=== PATIENT | female | born 1945 | race Caucasian/White ===

== ENCOUNTER 2017-03-28 15:51 | Outpatient (CLI) | payer OTHER ==
[~2017-03-28] VITALS: Ht 148.6 cm; Wt 56.4 kg
[2017-03-28 16:08] VITALS: BP 178/79; PULSE 95; RESP 16; Ht 148.6 cm; Wt 56.4 kg
[2017-03-28] MEDS ORDERED: ATOR80TA75 PO (16:08)
[2017-03-28] MEDS ORDERED: FAMO20TA18 PO (16:08)
[2017-03-28] MEDS ORDERED: ONDA4TAB95 PO (16:08)
[2017-03-28] MEDS ORDERED: LEVO75TA5 PO (16:08)
[2017-03-28] MEDS ORDERED: HYD25 PO (16:08)
[2017-03-28] MEDS ORDERED: PANT40TA4 PO (16:08)
--- NOTE | 2017-03-28 16:16 | PN ---
Date/Time of Note Date/Time of Note DATE: 03/28/17 TIME: 16:12 Outpatient Progress Note Chief Complaint Abdominal pain/hypertension/liver failure/anemia HPI Abdominal pain/patient has abdominal pain, mostly in the right upper quadrant, no fever chill, patient was recently hospitalized, patient had acute cholecystitis, patient also has a gallstone, patient still has antibiotic, no fever chill, Hypertension/patient has slightly elevated blood pressure, patient is in moderate pain, patient was just taking Motrin, no nausea or vomiting, Liver failure/no confusion, no nausea vomiting, Anemia/no hematemesis or melena, no ecchymoses or bruises or bleeding, Review of Systems Const: No Fever, no chills, no Wt. loss, no Fatigue, normal appetite, no diaphoresis. Eyes: No pain, no discharge, no redness, no visual change, no foreign body. ENT: No pain, no bleeding, no congestion, no sore throat, no dysphagia, no discharge or rhinitis. Lymph: No adenopathy, no tender nodes, no lymphedema. Resp: No SOB, no cough, no sputum, no wheezing, no chest pain. CV: No chest pain, no palpitaions, no HAGAN, no PND, no edema. GI: Normal appetite, right upper quadrant pain, no nausea, no vomiting, no diarrhea, no blood, no constipation. : No frequency, no urgency, no dysuria, no hematuria, no flank pain, no discharge, no bleeding. Musc: No bone/joint pain, no back pain, no neck pain, no knee pain, no restricted ROM. Skin: No rash, no skin lesions, no erythema, no laceration, no bruising, no pruritus. Neuro: No CHAVES, no dizziness, no syncope, no seizure, no focal-weakness. Endo: No polyuria, no polydypsia, no dry-skin, no temp-intolerance. Psych: No hallucinations, no depression, no anxiety, no suicidal ideation. Ext: No edema, no pain, no ulcer, no weakness. Physical Exam Vital Signs Date Time Temp Pulse Resp B/P Pulse Ox O2 Delivery O2 Flow Rate FiO2 03/28/17 16:08 97.8 95 16 178/79 95 Room Air General Appearance: A 71 year-old female who appears well-developed, well- nourished, in no acute distress. HEENT: Head normocephalic, atraumatic. Pupils equal, round, reactive to light and accommodate. Sclerae are no jaundice. Nasal turbinates pink without erythema or nasal discharge. Mucous membranes pink and moist without lesions. Oropharynx clear without any exudate or discharge. NECK: Supple. Trachea midline, No thyromegaly, No cervical lymphadenopathy, No mass, No carotid bruits, No JVD, Carotid pulses 2+ bilaterally. PULMONARY: Clear to auscultaion bilaterally, No retractions, Chest expansion symmetric bilaterally, no rales, no ronchi, no dulness on percussion. CARDIAC: Normal SI and S2, Regular rate and rythm, no murmur, gallop, or rub. GASTROINTESTINAL: Abdomen is soft, right upper quadrant-tender, Non Rigid, No distention, Positive bowel sounds x4 quadrants, Liver normal. SKIN: Warm, dry, no rash, no bruise, no echmosis., No pruritus, no eczema, EXTREMITIES: Bilateral lower extremities normal, no edema, no phlabitus, pulse palpable, no contracture. MUSCULOSKELETAL: Spine Normal, Non-tender, Normal range of motion, No swelling, no deformity, no clubbing, or cyanosis, the patient has no edema to bilateral lower extremities, dorsalis pedis pulses palpable bilaterally. NEUROLOGIC: The patient is awake, alert, oriented, responding to yes/no questions appropriately, moving all extremities, cranial nerve intact, normal strenght, normal power, normal coordination, normal gait. Allergies Coded Allergies: No Known Drug Allergies (Verified Allergy, Unknown, 03/28/17) PMH Gallstones/acute pancreatitis/cholelithiasis cholecystitis hypertension liver failure anemia Social Hx No smoking no drinking, Family Hx Noncontributory Assessment/Plan Impression Abdominal pain secondary to cholelithiasis and cholecystitis, Hypertension p poorly controlled Liver failure Anemia Plan Patient education done about her disease, patient still has lot of abdominal pain, 6 or 7 out of 10, patient was just taking Motrin, [address] 5/325 p.o. 4 times daily as needed for pain #50 CBC CMP, Patient advised to follow with the primary care physician, and continue all medication, Patient blood pressure slightly elevated, patient has a lot of pain so will monitor, with the blood pressure medication will be added if next visit blood pressure is elevated, Patient is still working, patient was unable to work, will give her relief, Medications Home Meds Reported Medications Hydrochlorothiazide* (Hydrochlorothiazide*) 25 Mg Tab, 25 MG PO DAILY, #30 TAB 03/28/17 Levothyroxine Sodium* (Levothyroxine Sodium*) 75 Mcg Tablet, 75 MCG PO BEFORE BREAKFAST, #30 TAB 03/28/17 Famotidine* (Famotidine*) 20 Mg Tablet, 20 MG PO DAILY for acid, #30 TAB 03/28/17 Ondansetron Hcl* (Ondansetron Hcl*) 4 Mg Tablet, 4 MG PO Q8 for NAUSEA, TAB 03/28/17 Pantoprazole* (Pantoprazole*) 40 Mg Tablet.dr, 40 MG PO AC BREAKFAST, TAB 03/28/17 Atorvastatin* (Atorvastatin*) 80 Mg Tablet, 80 MG PO QHS, #30 TAB 03/28/17 SOLITARIO TORRES MD Mar 28, 2017 16:16
== END 2017-03-28 16:45 | disposition home or self-care (01) ==
LOC: DCC 15:51
PROVIDERS: ATTEND Internal Medicine
DX: K80.10 Calculus of gallbladder with chronic cholecystitis without obstruction (principal); I10 Essential (primary) hypertension; K72.90 Hepatic failure, unspecified without coma; D64.9 Anemia, unspecified

== ENCOUNTER 2017-06-26 19:49 | Inpatient (IN) | payer OTHER ==
[~2017-06-26] VITALS: Ht 162.6 cm; Wt 57.5 kg
[~2017-06-26 19:49] MED LIST: ATOR80TA75 PO; FAMO20TA18 PO; HYD25 PO; LEVO75TA5 PO; ONDA4TAB95 PO; PANT40TA4 PO
[2017-06-26 19:55] VITALS: Ht 162.6 cm; Wt 57.5 kg
[2017-06-26] MEDS ORDERED: SOD CHLORIDE 0.9% 1,000 ML IV STA (21:28)
[2017-06-26] MEDS ORDERED: ONDANSETRON 4 MG INJ IV STA ×2 (21:28→23:10)
[2017-06-26] MEDS ORDERED: morphine 4 MG/ML VIAL IV STA ×2 (21:28→23:10)
--- NOTE | 2017-06-26 21:56 | RADRPT ---
PROCEDURE: US Abdomen (right upper quadrant). CLINICAL INDICATION: Right upper quadrant abdomen pain. TECHNIQUE: Multiple real-time longitudinal and transverse images of the right upper quadrant of th e abdomen were acquired utilizing a curved array transducer. Images were reviewed on a high-resoluti on PACS workstation. COMPARISON: None FINDINGS: The liver is normal in size and normal in echogenicity. There is no focal hepatic lesion. Color Doppler and pulsed Doppler sonography demonstrate normal a ntegrade flow in the portal vein. Multiple gallstones are present in the gallbladder. There is no gallbladder wall thickening or flui d around the gallbladder. The bile ducts are normal with the common bile duct measuring 6.5 mm in diameter. The visualized portions of the pancreas are unremarkable with obscuration of the tail of the pancrea s. No free fluid is present. The right kidney measures 10.6 cm. There is normal echogenicity of the right kidney. There is no perinephric fluid collection. No hydronephrosis, mass, or calculus is seen. IMPRESSION: 1. Gallstones in the gallbladder. No evidence of cholecystitis. 2. Otherwise normal right upper quadrant abdomen ultrasound. RPTAT: QQ .Darren Myrick MD, MD Date Time Electronically viewed and signed by .Darren Myrick MD, on 06/26/2017 21:56 .R/
[2017-06-26] MEDS ORDERED: IBUP800T25 PO (22:07)
[2017-06-26] MEDS ORDERED: FER325 PO (22:07)
[2017-06-26 22:12] LABS: BASOPHILS % 0.2 % (0.0-2.0); HEMATOCRIT 34.3 % (37.0-47.0); HEMOGLOBIN 11.8 g/dl (12.0-16.0); LYMPHOCYTES # 1.6 10^3/ul (0.8-2.9); LYMPHOCYTES % 9.1 % (15.0-51.0); MEAN CORPUSCULAR HEMOGLOBIN 30.4 pg (29.0-33.0); MEAN CORPUSCULAR HGB CONC 34.4 g/dl (32.0-37.0); MEAN CORPUSCULAR VOLUME 88.4 fl (82.0-101.0); MEAN PLATELET VOLUME 10.7 fl (7.4-10.4); MONOCYTE # 0.7 10^3/ul (0.3-0.9); MONOCYTES % 3.7 % (0.0-11.0); NEUTROPHILS % 86.5 % (39.0-77.0); PLATELET COUNT 285 10^3/UL (140-415); RED BLOOD COUNT 3.88 10^6/ul (4.20-5.40); RED CELL DISTRIBUTION WIDTH 13.6 % (11.5-14.5); WHITE BLOOD COUNT 17.4 10^3/ul (4.8-10.8)
--- NOTE | 2017-06-26 22:17 | ERA ---
ER Documentation Chief Complaint Date/Time DATE: 06/26/17 TIME: 22:17 Chief Complaint RUQ abd pain x 2 days HPI The patient is a 71-year-old female, presenting with presenting with abdominal pain intermittently for 2 days, more painful and at the epigastric and upper quadrant, no aggravating or relieving factor. She had similar symptoms previously, complains of nausea but no vomiting, denies diarrhea, constipation, dysuria. she does not smoke/drink Past medical history: Anemia, hypothyroidism, dyslipidemia, cholelithiasis Past surgical history: None ROS All systems reviewed and are negative except as per history of present illness. Medications Home Meds Reported Medications Ferrous Sulfate* (Ferrous Sulfate*) 325 Mg Tabec, 325 MG PO DAILY, TAB 06/26/17 Ibuprofen* (Ibuprofen*) 800 Mg Tab, 800 MG PO TID Y for PRN, TAB 06/26/17 Levothyroxine Sodium* (Levothyroxine Sodium*) 75 Mcg Tablet, 75 MCG PO BEFORE BREAKFAST, #30 TAB 03/28/17 Famotidine* (Famotidine*) 20 Mg Tablet, 20 MG PO DAILY for acid, #30 TAB 03/28/17 Ondansetron Hcl* (Ondansetron Hcl*) 4 Mg Tablet, 4 MG PO Q8 for NAUSEA, TAB 03/28/17 Atorvastatin* (Atorvastatin*) 80 Mg Tablet, 80 MG PO QHS, #30 TAB 03/28/17 Discontinued Reported Medications Hydrochlorothiazide* (Hydrochlorothiazide*) 25 Mg Tab, 25 MG PO DAILY, #30 TAB 03/28/17 Pantoprazole* (Pantoprazole*) 40 Mg Tablet.dr, 40 MG PO AC BREAKFAST, TAB 03/28/17 Allergies Allergies: Coded Allergies: No Known Drug Allergies (Verified Allergy, Unknown, 06/26/17) PMhx/Soc History of Surgery: No Anesthesia Reaction: No Hx Neurological Disorder: No Hx Respiratory Disorders: No Hx Cardiac Disorders: Yes (hyperlipids) Hx Psychiatric Problems: No Hx Miscellaneous Medical Probl: Yes (hypothyroid) Hx Alcohol Use: No Hx Substance Use: No Hx Tobacco Use: No Smoking Status: Never smoker Physical Exam Vitals Vital Signs Date Time Temp Pulse Resp B/P Pulse Ox O2 Delivery O2 Flow Rate FiO2 06/26/17 23:20 99 20 144/63 94 Room Air 06/26/17 19:55 98.3 88 20 133/89 100 Physical Exam Const: No acute distress. Head: Atraumatic. Eyes: Normal Conjunctiva. ENT: Normal External Ears, Nose and Mouth. Neck: Full range of motion. No meningismus. Resp: Clear to auscultation bilaterally. Cardio: Regular rate and rhythm. Abd: Soft, non distended, normal bowel sounds, moderate RUQ/ epigastric abdominal tenderness Skin: No petechiae or rashes. Back: No midline or flank tenderness. Ext: No cyanosis, or edema. Neur: Awake and alert. No focal deficit Psych: Normal Mood and Affect.. Result Diagram: 06/26/17212906/26/172129 Results 24 hrs Laboratory Tests Test 06/26/17 21:30 White Blood Count 17.410^3/ul Red Blood Count 3.8810^6/ul Hemoglobin 11.8g/dl Hematocrit 34.3% Mean Corpuscular Volume 88.4fl Mean Corpuscular Hemoglobin 30.4pg Mean Corpuscular Hemoglobin Concent 34.4g/dl Red Cell Distribution Width 13.6% Platelet Count 59344^3/UL Mean Platelet Volume 10.7fl Neutrophils % 86.5% Lymphocytes % 9.1% Monocytes % 3.7% Eosinophils % 0.0% Basophils % 0.2% Nucleated Red Blood Cells % 0.0/100WBC Neutrophils # (Manual) 15.010^3/ul Lymphocytes # 1.610^3/ul Monocytes # 0.710^3/ul Eosinophils # 0.010^3/ul Basophils # 0.010^3/ul Nucleated Red Blood Cells # 0.010^3/ul Urine Color YELLOW Urine Clarity CLEAR Urine pH 5.0 Urine Specific [place] 1.018 Urine Ketones 1+mg/dL Urine Nitrite NEGATIVEmg/dL Urine Bilirubin NEGATIVEmg/dL Urine Urobilinogen NEGATIVEmg/dL Urine Leukocyte Esterase NEGATIVELeu/ul Urine Hemoglobin NEGATIVEmg/dL Urine Glucose NEGATIVEmg/dL Urine Total Protein NEGATIVEmg/dl Sodium Level 142mmol/L Potassium Level 3.6mmol/L Chloride Level 102mmol/L Carbon Dioxide Level 22mmol/L Anion Gap 22 Blood Urea Nitrogen 15mg/dl Creatinine 0.70mg/dl Glucose Level 134mg/dl Calcium Level 9.8mg/dl Total Bilirubin 0.3mg/dl Direct Bilirubin 0.00mg/dl Indirect Bilirubin 0.3mg/dl Aspartate Amino Transf (AST/SGOT) 33IU/L Alanine Aminotransferase (ALT/SGPT) 34IU/L Alkaline Phosphatase 120IU/L Total Protein 8.4g/dl Albumin 4.5g/dl Globulin 3.90g/dl Albumin/Globulin Ratio 1.15 Lipase 101U/L Current Medications Medications (Trade) Dose Ordered Sig/Alejandra Route PRN Reason Start Time Stop Time Status Last Admin Dose Admin Sodium Chloride (NS) 1,000 ml @ 1,000 mls/hr Q1H STAT IV 06/26/17 21:28 06/26/17 22:27 DC 06/26/17 21:35 Morphine Sulfate (morphine) 4 mg ONCE STAT IV 06/26/17 21:28 06/26/17 21:29 DC 06/26/17 21:34 Ondansetron HCl (Zofran Inj) 4 mg ONCE STAT IV 06/26/17 21:28 06/26/17 21:29 DC 06/26/17 21:34 Morphine Sulfate (morphine) 4 mg ONCE STAT IV 06/26/17 23:10 06/26/17 23:11 DC 06/26/17 23:13 Ondansetron HCl 4 mg 4 mg ONCE STAT IV 06/26/17 23:10 06/26/17 23:11 DC 06/26/17 23:13 Piperacillin Sod/ Tazobactam Sod (Zosyn 3.375gm/ 100 ml (Pmx)) 100 ml @ 200 mls/hr ONCE ONCE IVPB 06/27/17 00:00 06/27/17 00:29 DC 06/27/17 00:10 Metoclopramide HCl (Reglan) 10 mg ONCE ONCE IV 06/27/17 00:30 06/27/17 00:31 DC Procedures/[place] [id number] Radiology Main Line: [phone] DIAGNOSTIC IMAGING REPORT Patient: VALENTE TORRES : 1945 Age: 71 Sex: F MR #: [id number] DOS: 06/26/172127 Ordering MD: SHRUTHI ERICKSON DO Location: E/R Room/Bed: PROCEDURE: US Abdomen (right upper quadrant). CLINICAL INDICATION: Right upper quadrant abdomen pain. TECHNIQUE: Multiple real-time longitudinal and transverse images of the right upper quadrant of the abdomen were acquired utilizing a curved array transducer. Images were reviewed on a high-resolution PACS workstation. COMPARISON: None FINDINGS: The liver is normal in size and normal in echogenicity. There is no focal hepatic lesion. Color Doppler and pulsed Doppler sonography demonstrate normal antegrade flow in the portal vein. Multiple gallstones are present in the gallbladder. There is no gallbladder wall thickening or fluid around the gallbladder. The bile ducts are normal with the common bile duct measuring 6.5 mm in diameter. The visualized portions of the pancreas are unremarkable with obscuration of the tail of the pancreas. No free fluid is present. The right kidney measures 10.6 cm. There is normal echogenicity of the right kidney. There is no perinephric fluid collection. No hydronephrosis, mass, or calculus is seen. IMPRESSION: 1. Gallstones in the gallbladder. No evidence of cholecystitis. 2. Otherwise normal right upper quadrant abdomen ultrasound. RPTAT: QQ .Darren Myrick MD, Date Time Electronically viewed and signed by .Darren Myrick MD, on 06/26/2017 21:56 .R/ CC: SHRUTHI ERICKSON DO MDM: The pt is a 71 yo F, presenting with acute symptomatic biliary colic. She was treated with morphine 4 mg IV 2 for pain, Zofran 4 mg IV 2, Reglan 10 mg IV for nausea, 1 L normal saline for clinical dehydration, Zosyn IV for acute symptomatic biliary colic with good response The differential diagnoses considered include but are not limited to cholelithiasis, cholecystitis, cystitis, pancreatitis, hepatitis, gastritis, peptic ulcer disease, gastric ulcer, appendicitis, diverticulitis, cholangitis, choledocholithiasis, partial small bowel obstruction Consultation: I discussed the patient with the on-call general surgeon Dr. Clayton, who was made aware of the lab, the treatment. He accepted the consult at 11:30 PM Departure Diagnosis: Primary Impression: Biliary colic Additional Impression: Anemia Condition: Stable Additional Instructions: The patient's blood pressure was elevated (>120/80) but appears stable without evidence of hypertension emergency or urgency. The patient was counseled about the risks of hypertension and urged to pursue outpatient monitoring and therapy within a week with their primary care physician. I discussed the findings with the patient. I discussed the patient with the on- call hospitalist Dr. Valencia at 11:40 PM who was made aware of the lab, the treatment, the patient condition and my discussion with the surgeon. The patient is admitted to medical surgery bed NNEKA MARQUEZ MD Jun 26, 2017 22:17
[2017-06-26 22:35] LABS: ALBUMIN 4.5 g/dl (3.3-4.9); ALBUMIN/GLOBULIN RATIO 1.15; BILIRUBIN,INDIRECT 0.3 mg/dl (0-1.1); BILIRUBIN,TOTAL 0.3 mg/dl (0.2-1.3); CALCIUM 9.8 mg/dl (8.4-10.2); CREATININE 0.7 mg/dl (0.44-1.00); POTASSIUM 3.6 mmol/L (3.5-5.1); TOTAL PROTEIN 8.4 g/dl (6.1-8.1)
[2017-06-26 23:25] LABS: ADD UMIC NO; UR ASCORBIC ACID NEGATIVE (NEGATIVE); UR BILIRUBIN (Dip) NEGATIVE (NEGATIVE); UR BLOOD (Dip) NEGATIVE (NEGATIVE); UR CLARITY CLEAR (CLEAR); UR COLOR YELLOW (YELLOW); UR GLUCOSE (Dip) NEGATIVE (NEGATIVE); UR KETONES (Dip) 1+ mg/dL (NEGATIVE); UR LEUKOCYTE ESTERASE (Dip) NEGATIVE Leu/ul (NEGATIVE); UR NITRITE (Dip) NEGATIVE (NEGATIVE); UR SPECIFIC GRAVITY (Dip) 1.018 (1.003-1.030); UR TOTAL PROTEIN (Dip) NEGATIVE (NEGATIVE); UR UROBILINOGEN (Dip) NEGATIVE (NEGATIVE)
[2017-06-27] VITALS (8 sets, daily range): BP systolic 129–142; BP diastolic 59–80; PULSE 93–120; RESP 18–22; TEMP 98.3
[2017-06-27] MEDS ORDERED: PIPER-TAZO 3.375 GM IV (PMX) 100 ML IVPB ONE
[2017-06-27] MEDS ORDERED: METOCLOPRAMIDE 10 MG INJ IV ONE (00:30)
[2017-06-27] MEDS ORDERED: DEXTROSE 5%-0.45% NACL 1,000 ML IV SCH (03:21)
[2017-06-27] MEDS ORDERED: NACL 0.9% 3 ML SYG IV SCH (03:30)
[2017-06-27] MEDS: ONDANSETRON 4 MG INJ IV PRN ×3 (05:05→17:36)
[2017-06-27] MEDS: morphine 4 MG/ML VIAL IV PRN ×2 (05:05→17:36)
[2017-06-27 06:09] LABS: BASOPHILS % 0.1 % (0.0-2.0); HEMOGLOBIN 10.5 g/dl (12.0-16.0); LYMPHOCYTES # 0.9 10^3/ul (0.8-2.9); LYMPHOCYTES % 4.4 % (15.0-51.0); MEAN CORPUSCULAR HEMOGLOBIN 29.8 pg (29.0-33.0); MEAN CORPUSCULAR HGB CONC 33.9 g/dl (32.0-37.0); MEAN CORPUSCULAR VOLUME 88.1 fl (82.0-101.0); MEAN PLATELET VOLUME 10.8 fl (7.4-10.4); MONOCYTE # 1.1 10^3/ul (0.3-0.9); MONOCYTES % 5.6 % (0.0-11.0); NEUTROPHILS % 89.2 % (39.0-77.0); PLATELET COUNT 251 10^3/UL (140-415); RED BLOOD COUNT 3.52 10^6/ul (4.20-5.40); WHITE BLOOD COUNT 20.4 10^3/ul (4.8-10.8)
[2017-06-27] MEDS ORDERED: GLUCOSE GEL 15 GRAM TUBE PO PRN ×2 (06:30)
[2017-06-27] MEDS ORDERED: GLUCAGON 1 MG INJ IM PRN (06:30)
[2017-06-27] MEDS ORDERED: AMPICILLIN/SULB 3 GM/NS (PMX) 100 ML IVPB SCH (06:30)
[2017-06-27] MEDS ORDERED: GLUCOSE GEL 15 GRAM TUBE BUCCAL PRN (06:30)
[2017-06-27] MEDS ORDERED: DEXTROSE 50% 50 ML SYRINGE IV PRN ×2 (06:30)
--- NOTE | 2017-06-27 06:35 | HP ---
Date/Time of Note Date/Time of Note DATE: 06/27/17 TIME: 06:20 Assessment/Plan VTE Prophylaxis VTE Prophylaxis Intervention: SCD's Lines/Catheters Urinary Cath still in place: No Assessment/Plan Assessment/Plan 1. Cholelithiasis with cholecystitis -N.p.o. with IV fluid -IV antibiotic -Pain management -General surgery consult -will order HIDA scan 2. Sepsis, as evidenced by leukocytosis and tachycardia, from a presumed cholecystitis -IV antibiotic -Follow-up culture results -General surgery to evaluate for possible cholecystitis 3. History of hypertension -As needed IV antihypertensive for now 4. Anemia, likely of chronic disease -Monitor H&H and transfuse as needed 5. History of hypothyroidism -Resume Synthroid when no longer n.p.o... If prolonged n.p.o., will start IV Synthroid with appropriate dose adjustment. HPI/ROS Admit Date/Time Admit Date/Time Jun 27, 2017 at 00:36 Hx of Present Illness This is a 71-year-old female with a history of hypertension, dyslipidemia, hypothyroidism, gallstones who presents to the emergency department complaining of abdominal pain. Abdominal pain is diffuse but somehow worse in the right upper quadrant area. Patient was admitted under Dr. Domenic Rock to [facility] in February of this year. At that time she was diagnosed with gallstone pancreatitis and acute liver failure. At that time her lipase was 1400, AST 577 and ALT 853. When she presented to the ER at this time, WBC 17.4, hemoglobin 11.8 otherwise CBC and CMP are within acceptable range. LFTs and lipase are within normal limits. Vitals stable with no fever. Gallbladder ultrasound shows cholelithiasis with no evidence of cholecystitis. CBD measures 6.5 mm. . PMH/Family/Social Past Medical History Medical History: high cholesterol, hypertension, hypothyroid, other (Gallstone pancreatitis) Social History Alcohol Use: none Smoking Status: Never smoker Drug Use: none Exam/Review of Systems Vital Signs Vitals Vital Signs Date Time Temp Pulse Resp B/P Pulse Ox O2 Delivery O2 Flow Rate FiO2 06/27/17 04:00 93 06/27/17 03:10 98.3 18 142/65 97 Room Air Exam Constitutional: alert, oriented, well developed Head: atraumatic, normocephalic Eyes: EOMI, PERRL Respiratory: clear to auscultation, normal air movement Cardiovascular: other (Tachycardic with regular rate) Gastrointestinal: soft, tender Extremities: normal pulses Labs Result Diagram: 06/27/17 0505 06/26/17 3850 Medications Medications Current Medications Dextrose/Sodium Chloride (D5-1/2ns) 1,000 ml @ 100 mls/hr Q10H IV Last administered on 06/27/17 03:21; Admin Dose 100 MLS/HR; Start 06/27/17 at 03:21 Ondansetron HCl (Zofran Inj) 4 mg Q6H PRN IV NAUSEA AND/OR VOMITING Last administered on 06/27/17 05:05; Admin Dose 4 MG; Start 06/27/17 at 03:30 Famotidine (Pepcid Iv) 20 mg Q12 IV ; Start 06/27/17 at 09:00 Hydralazine HCl (Apresoline) 10 mg Q4H PRN IV SBP > 160; Start 06/27/17 at 03:30 Morphine Sulfate (morphine) 4 mg Q4H PRN IV SEVERE PAIN LEVEL 7-10 Last administered on 06/27/17 05:05; Admin Dose 4 MG; Start 06/27/17 at 05:00 Diagnostic Test (Pha) (Accu-Chek) 1 ea 02 XX ; Start 06/28/17 at 02:00 Insulin Glargine (Lantus) 10 unit DAILY@08 SC ; Start 06/27/17 at 08:00 Miscellaneous Information 1 ea NOTE XX ; Start 06/27/17 at 06:30 Glucose (Glutose) 15 gm Q15M PRN PO DECREASED GLUCOSE; Start 06/27/17 at 06:30 Glucose (Glutose) 22.5 gm Q15M PRN PO DECREASED GLUCOSE; Start 06/27/17 at 06:30 Dextrose (D50w Syringe) 25 ml Q15M PRN IV DECREASED GLUCOSE; Start 06/27/17 at 06:30 Dextrose (D50w Syringe) 50 ml Q15M PRN IV DECREASED GLUCOSE; Start 06/27/17 at 06:30 Glucagon (Glucagen) 1 mg Q15M PRN IM DECREASED GLUCOSE; Start 06/27/17 at 06:30 Glucose (Glutose) 15 gm Q15M PRN BUCCAL DECREASED GLUCOSE; Start 06/27/17 at 06: 30 AMDE,ZHENG MD Jun 27, 2017 06:34
[2017-06-27 07:01] LABS: ALBUMIN 3.7 g/dl (3.3-4.9); ALBUMIN/GLOBULIN RATIO 1.12; BILIRUBIN,INDIRECT 0.5 mg/dl (0-1.1); BILIRUBIN,TOTAL 0.5 mg/dl (0.2-1.3); CALCIUM 8.4 mg/dl (8.4-10.2); CREATININE 0.6 mg/dl (0.44-1.00); MAGNESIUM 1.8 mg/dl (1.7-2.5); PHOSPHORUS 3.3 mg/dl (2.5-4.9); POTASSIUM 3.5 mmol/L (3.5-5.1)
[2017-06-27] MEDS: INSULIN ASPART [NOVOLOG] 3 ML PEN SC SCH ×2 (07:35→12:50)
[2017-06-27 08:00] LABS: THYROID STIMULATING HORMONE 1.5 MIU/L (0.465-4.680)
[2017-06-27] MEDS ORDERED: INSULIN GLARGINE [LANtus] 3 ML PEN SC SCH (08:00)
--- NOTE | 2017-06-27 08:22 | CONS ---
Date/Time of Note Date/Time of Note DATE: 06/27/17 TIME: 08:18 Assessment/Plan Assessment/Plan Additional Assessment/Plan Medically this patient has acute cholecystitis and would be benefited by laparoscopic cholecystectomy. Have discussed the procedure, outcomes, expectations, alternatives and risks in detail with the patient who has an excellent understanding of the nature of her situation, and agrees to the proposed plan of therapy as outlined Consultation Date/Type/Reason Admit Date/Time Jun 27, 2017 at 00:36 Date of Consultation: Jun 27, 2017 Reason for Consultation Acute cholecystitis Hx of Present Illness Patient is a 71-year-old female with known gallstones. She has had a past hospitalization at [facility] for gallstone pancreatitis. She now returns to the emergency room with 2 days of epigastric and right upper quadrant abdominal pain. Abdominal ultrasound showed gallstones without evidence of cholecystitis, however her white count which was 17 on admission is up to 20,000. Her LFTs are normal. She has had no fevers, chills or jaundice. Past Medical History Medical History: high cholesterol, hypertension, hypothyroid, other (Gallstone pancreatitis) Past Surgical History Past Surgical Hx: no surgical history Family History Significant Family History: no pertinent family hx Social History Alcohol Use: none Smoking Status: Never smoker Drug Use: none Exam/Review of Systems Vital Signs Vitals Vital Signs Date Time Temp Pulse Resp B/P Pulse Ox O2 Delivery O2 Flow Rate FiO2 06/27/17 04:00 93 06/27/17 03:10 98.3 18 142/65 97 Room Air Exam Constitutional: alert, oriented, other ([place] only [place]) Psych: no complaints Head: normocephalic Eyes: nl conjunctiva, nl lids Neck: supple Respiratory: clear to auscultation Cardiovascular: regular rate and rhythm Gastrointestinal: tender (Right upper quadrant and epigastrium) Musculoskeletal: nl extremities to inspection Neurological: SUPPLY CRIB ATTENDANT II-XII intact Results Result Diagram: 06/27/17 0505 06/27/17 0505 Results 24 hrs Laboratory Tests Test 06/26/17 21:30 06/27/17 05:05 White Blood Count 17.4 H 20.4 H Red Blood Count 3.88 L 3.52 L Hemoglobin 11.8 L 10.5 L Hematocrit 34.3 L 31.0 L Mean Corpuscular Volume 88.4 88.1 Mean Corpuscular Hemoglobin 30.4 29.8 Mean Corpuscular Hemoglobin Concent 34.4 33.9 Red Cell Distribution Width 13.6 14.0 Platelet Count 285 251 Mean Platelet Volume 10.7 H 10.8 H Neutrophils % 86.5 H 89.2 H Lymphocytes % 9.1 L 4.4 L Monocytes % 3.7 5.6 Eosinophils % 0.0 0.0 Basophils % 0.2 0.1 Nucleated Red Blood Cells % 0.0 0.0 Neutrophils # (Manual) 15.0 H 18.2 H Lymphocytes # 1.6 0.9 Monocytes # 0.7 1.1 H Eosinophils # 0.0 0.0 Basophils # 0.0 0.0 Nucleated Red Blood Cells # 0.0 0.0 Urine Color YELLOW Urine Clarity CLEAR Urine pH 5.0 Urine Specific [place] 1.018 Urine Ketones 1+ H Urine Nitrite NEGATIVE Urine Bilirubin NEGATIVE Urine Urobilinogen NEGATIVE Urine Leukocyte Esterase NEGATIVE Urine Hemoglobin NEGATIVE Urine Glucose NEGATIVE Urine Total Protein NEGATIVE Sodium Level 142 138 Potassium Level 3.6 3.5 Chloride Level 102 106 Carbon Dioxide Level 22 23 Anion Gap 22 H 13 # Blood Urea Nitrogen 15 12 Creatinine 0.70 0.60 Glucose Level 134 129 Calcium Level 9.8 8.4 Total Bilirubin 0.3 0.5 Direct Bilirubin 0.00 0.00 Indirect Bilirubin 0.3 0.5 Aspartate Amino Transf (AST/SGOT) 33 62 H Alanine Aminotransferase (ALT/SGPT) 34 56 Alkaline Phosphatase 120 79 Total Protein 8.4 H 7.0 # Albumin 4.5 3.7 Globulin 3.90 H 3.30 H Albumin/Globulin Ratio 1.15 1.12 Lipase 101 Phosphorus Level 3.3 Magnesium Level 1.8 Thyroid Stimulating Hormone (TSH) 1.500 Medications Medications Current Medications Dextrose/Sodium Chloride (D5-1/2ns) 1,000 ml @ 100 mls/hr Q10H IV Last administered on 06/27/17 03:21; Admin Dose 100 MLS/HR; Start 06/27/17 at 03:21 Ondansetron HCl (Zofran Inj) 4 mg Q6H PRN IV NAUSEA AND/OR VOMITING Last administered on 06/27/17 05:05; Admin Dose 4 MG; Start 06/27/17 at 03:30 Famotidine (Pepcid Iv) 20 mg Q12 IV ; Start 06/27/17 at 09:00 Hydralazine HCl (Apresoline) 10 mg Q4H PRN IV SBP > 160; Start 06/27/17 at 03:30 Morphine Sulfate (morphine) 4 mg Q4H PRN IV SEVERE PAIN LEVEL 7-10 Last administered on 06/27/17t 05:05; Admin Dose 4 MG; Start 06/27/17 at 05:00 Diagnostic Test (Pha) (Accu-Chek) 1 ea 02 XX ; Start 06/28/17 at 02:00 Insulin Glargine (Lantus) 10 unit DAILY@08 SC ; Start 06/27/17 at 08:00 Miscellaneous Information 1 ea NOTE XX ; Start 06/27/17 at 06:30 Glucose (Glutose) 15 gm Q15M PRN PO DECREASED GLUCOSE; Start 06/27/17 at 06:30 Glucose (Glutose) 22.5 gm Q15M PRN PO DECREASED GLUCOSE; Start 06/27/17 at 06:30 Dextrose (D50w Syringe) 25 ml Q15M PRN IV DECREASED GLUCOSE; Start 06/27/17 at 06:30 Dextrose (D50w Syringe) 50 ml Q15M PRN IV DECREASED GLUCOSE; Start 06/27/17 at 06:30 Glucagon (Glucagen) 1 mg Q15M PRN IM DECREASED GLUCOSE; Start 06/27/17 at 06:30 Glucose 15 gm 15 gm Q15M PRN BUCCAL DECREASED GLUCOSE; Start 06/27/17 at 06:30 Ampicillin Sodium/ Sulbactam Sodium (Unasyn 3gm/NS (Pmx)) 100 ml @ 100 mls/hr Q6 IVPB ; Start 06/27/17 at 06:30 TRISTAN RUSSELL MD Jun 27, 2017 08:22
[2017-06-27] MEDS: FAMOTIDINE 20 MG INJ IV SCH ×2 (13:03→20:17)
[2017-06-27] MEDS: AMPICILLIN/SULB 3 GM/NS (PMX) 100 ML IVPB SCH ×2 (17:37→23:29)
[2017-06-27] MEDS: ACETAMINOPHEN 325 MG TAB PO PRN (20:17)
[2017-06-28] VITALS (18 sets, daily range): BP systolic 97–160; BP diastolic 53–97; PULSE 90–108; RESP 10–21
[2017-06-28] MEDS ORDERED: ACCU-CHEK XX SCH ×2 (02:00)
[2017-06-28 05:18] LABS: ABNORMAL IP MESSAGE 1; BASOPHIL # 0.1 10^3/ul (0.0-0.1); BASOPHILS % 0.2 % (0.0-2.0); HEMATOCRIT 29.6 % (37.0-47.0); HEMOGLOBIN 10.1 g/dl (12.0-16.0); LYMPHOCYTES % 4.3 % (15.0-51.0); MEAN CORPUSCULAR HEMOGLOBIN 30.3 pg (29.0-33.0); MEAN CORPUSCULAR HGB CONC 34.1 g/dl (32.0-37.0); MEAN CORPUSCULAR VOLUME 88.9 fl (82.0-101.0); MEAN PLATELET VOLUME 10.5 fl (7.4-10.4); MONOCYTE # 1.4 10^3/ul (0.3-0.9); NEUTROPHILS % 82.4 % (39.0-77.0); PLATELET COUNT 214 10^3/UL (140-415); RED BLOOD COUNT 3.33 10^6/ul (4.20-5.40); RED CELL DISTRIBUTION WIDTH 14.2 % (11.5-14.5); WHITE BLOOD COUNT 23.8 10^3/ul (4.8-10.8)
[2017-06-28 05:29] LABS: POSITIVE DIFF @See below
[2017-06-28] MEDS: AMPICILLIN/SULB 3 GM/NS (PMX) 100 ML IVPB SCH ×4 (05:44→23:30)
[2017-06-28] MEDS: ONDANSETRON 4 MG INJ IV PRN ×2 (05:44→20:52)
[2017-06-28] MEDS: ACETAMINOPHEN 325 MG TAB PO PRN ×2 (05:47→08:30)
[2017-06-28 06:01] LABS: MAGNESIUM 1.8 mg/dl (1.7-2.5); PHOSPHORUS 2.6 mg/dl (2.5-4.9)
[2017-06-28 06:09] LABS: ALBUMIN 3.3 g/dl (3.3-4.9); ALBUMIN/GLOBULIN RATIO 1.03; BILIRUBIN,INDIRECT 0.6 mg/dl (0-1.1); BILIRUBIN,TOTAL 0.6 mg/dl (0.2-1.3); CALCIUM 7.9 mg/dl (8.4-10.2); CREATININE 0.74 mg/dl (0.44-1.00); POTASSIUM 3.1 mmol/L (3.5-5.1); TOTAL PROTEIN 6.5 g/dl (6.1-8.1)
[2017-06-28] MEDS ORDERED: GLYCOPYRROLATE 0.4 MG INJ ONE (07:00)
[2017-06-28] MEDS ORDERED: NEOSTIGMINE 3 MG/3 ML SYRINGE ONE (07:00)
[2017-06-28] MEDS: FAMOTIDINE 20 MG INJ IV SCH ×2 (08:30→20:53)
[2017-06-28] MEDS ORDERED: POTASSIUM CHLORIDE (SR) 20 MEQ TAB PO SCH (10:00)
--- NOTE | 2017-06-28 11:11 | PN ---
Date/Time of Note Date/Time of Note DATE: 06/28/17 TIME: 11:07 Assessment/Plan Lines/Catheters IV Catheter Type (from [facility]): Peripheral IV Garza in Place (from [facility]): No Assessment/Plan Chief Complaint/Hosp Course Patient is a 71-year-old female with known gallstones. She has had a past hospitalization at [facility] for gallstone pancreatitis. She now returns to the emergency room with 2 days of epigastric and right upper quadrant abdominal pain. Abdominal ultrasound showed gallstones without evidence of cholecystitis, however her white count which was 17 on admission is up to 20,000. Her LFTs are normal. She has had no fevers, chills or jaundice. Problems: Assessment/Plan Patient needs urgent cholecystectomy, as there are no ORs available, we will make arrangements for urgent ultrasound-guided cholecystostomy as a stop gap measure. I have discussed the situation with the radiologists who will be coming in to perform the procedure today. I have also explained this to the patient who fully understands and agrees. Subjective 24 Hr Interval Summary Surgery could not be performed yesterday because sterilization system has crashed, and there are no surgical trays. The patient has been kept on IV antibiotics overnight however, he remains febrile and white count is elevated to 23,000. I have been informed by the nursing plant supervisor, that the system is still down and there is no known time for recovery. There are multiple cases backing up. The patient remains symptomatic Exam/Review of Systems Vital Signs Vitals Vital Signs Date Time Temp Pulse Resp B/P Pulse Ox O2 Delivery O2 Flow Rate FiO2 06/28/17 10:00 99.1 06/28/17 07:58 112 18 97/53 96 06/27/17 20:00 Room Air Intake and Output 06/27/17 06/27/17 06/28/17 15:00 23:00 07:00 Intake Total 100 ml 1000 ml Output Total 1200 ml Balance 100 ml -200 ml Results Result Diagram: 06/28/17 0434 06/28/17 0434 TRISTAN RUSSELL MD Jun 28, 2017 11:11
[2017-06-28 12:07] LABS: PARTIAL THROMBOPLASTIN TIME 42.1 Sec (25.0-35.0)
--- NOTE | 2017-06-28 12:15 | PN ---
Date/Time of Note Date/Time of Note DATE: 06/28/17 TIME: 12:07 Assessment/Plan VTE Prophylaxis VTE Prophylaxis Intervention: SCD's Lines/Catheters IV Catheter Type (from Nrs): Peripheral IV Urinary Cath still in place: No Assessment/Plan Chief Complaint/Hosp Course 1. Sepsis secondary to cholecystitis -N.p.o. with IV fluid -IV antibiotic -Pain management -Patient needs urgent cholecystectomy, but since there are no ORs available patient will have an urgent ultrasound-guided cholecystostomy 2. History of hypertension -As needed IV antihypertensive for now 3. Anemia, likely of chronic disease -Monitor H&H and transfuse as needed 4. History of hypothyroidism -Resume Synthroid when no longer n.p.o. Prophylaxis: SCDs Problems: Subjective 24 Hr Interval Summary Gastrointestinal: pain Exam/Review of Systems Vital Signs Vitals Vital Signs Date Time Temp Pulse Resp B/P Pulse Ox O2 Delivery O2 Flow Rate FiO2 06/28/17 10:00 99.1 06/28/17 07:58 112 18 97/53 96 06/27/17 20:00 Room Air Intake and Output 06/27/17 06/27/17 06/28/17 15:00 23:00 07:00 Intake Total 100 ml 1000 ml Output Total 1200 ml Balance 100 ml -200 ml Exam Constitutional: alert Respiratory: clear to auscultation Cardiovascular: regular rate and rhythm Gastrointestinal: soft, No distended Musculoskeletal: nl extremities to inspection Results Result Diagram: 06/28/17 0434 06/28/17 0434 Results 24 hrs Laboratory Tests Test 06/28/17 04:34 06/28/17 11:25 White Blood Count 23.8 H Red Blood Count 3.33 L Hemoglobin 10.1 L Hematocrit 29.6 L Mean Corpuscular Volume 88.9 Mean Corpuscular Hemoglobin 30.3 Mean Corpuscular Hemoglobin Concent 34.1 Red Cell Distribution Width 14.2 Platelet Count 214 Mean Platelet Volume 10.5 H Neutrophils % 82.4 H Lymphocytes % 4.3 L Monocytes % 6.0 Eosinophils % 0.0 Basophils % 0.2 Nucleated Red Blood Cells % 0.0 Neutrophils # (Manual) 19.6 H Lymphocytes # 1.0 Monocytes # 1.4 H Eosinophils # 0.0 Basophils # 0.1 Nucleated Red Blood Cells # 0.0 Sodium Level 135 Potassium Level 3.1 L Chloride Level 102 Carbon Dioxide Level 26 Anion Gap 10 Blood Urea Nitrogen 14 Creatinine 0.74 Glucose Level 105 Hemoglobin A1c 5.6 Calcium Level 7.9 L Phosphorus Level 2.6 Magnesium Level 1.8 Total Bilirubin 0.6 Direct Bilirubin 0.00 Indirect Bilirubin 0.6 Aspartate Amino Transf (AST/SGOT) 38 Alanine Aminotransferase (ALT/SGPT) 47 Alkaline Phosphatase 101 Total Protein 6.5 Albumin 3.3 Globulin 3.20 Albumin/Globulin Ratio 1.03 Prothrombin Time 19.9 H Prothrombin Time Ratio 1.6 INR International Normalized Ratio 1.68 Activated Partial Thromboplast Time Pending Medications Medications Current Medications Ondansetron HCl (Zofran Inj) 4 mg Q6H PRN IV NAUSEA AND/OR VOMITING Last administered on 06/28/17 05:44; Admin Dose 4 MG; Start 06/27/17 at 03:30 Famotidine (Pepcid Iv) 20 mg Q12 IV Last administered on 06/28/17 08:30; Admin Dose 20 MG; Start 06/27/17 at 09:00 Hydralazine HCl (Apresoline) 10 mg Q4H PRN IV SBP > 160; Start 06/27/17 at 03:30 Morphine Sulfate (morphine) 4 mg Q4H PRN IV SEVERE PAIN LEVEL 7-10 Last administered on 06/27/17 17:36; Admin Dose 4 MG; Start 06/27/17 at 05:00 Miscellaneous Information 1 ea NOTE XX ; Start 06/27/17 at 06:30 Glucose (Glutose) 15 gm Q15M PRN PO DECREASED GLUCOSE; Start 06/27/17 at 06:30 Glucose (Glutose) 22.5 gm Q15M PRN PO DECREASED GLUCOSE; Start 06/27/17 at 06:30 Dextrose (D50w Syringe) 25 ml Q15M PRN IV DECREASED GLUCOSE; Start 06/27/17 at 06:30 Dextrose (D50w Syringe) 50 ml Q15M PRN IV DECREASED GLUCOSE; Start 06/27/17 at 06:30 Glucagon (Glucagen) 1 mg Q15M PRN IM DECREASED GLUCOSE; Start 06/27/17 at 06:30 Glucose 15 gm 15 gm Q15M PRN BUCCAL DECREASED GLUCOSE; Start 06/27/17 at 06:30 Ampicillin Sodium/ Sulbactam Sodium (Unasyn 3gm/NS (Pmx)) 100 ml @ 100 mls/hr Q6 IVPB Last administered on 06/28/17 05:44; Admin Dose 100 MLS/HR; Start at 18:00 Acetaminophen 650 mg 650 mg Q6H PRN PO PAIN AND OR ELEVATED TEMP Last administered on 06/28/17 08:30; Admin Dose 650 MG; Start 06/27/17 at 20:30 Potassium Chloride (KCl 40 MEQ/250 ML NS) 250 ml @ 62.5 mls/hr Q4H IVPB ; Start 06/28/17 at 11:00; Stop 06/28/17 at 18:59 MORRO MEYER Jun 28, 2017 12:15
[2017-06-28] MEDS: morphine 4 MG/ML VIAL IV PRN (12:25)
[2017-06-28 13:30] LABS: INR 1.54; PROTIME 18.6 Sec (12.2-14.2); PT RATIO 1.5
[2017-06-28] MEDS: POTASSIUM CHLORIDE 250 ML IVPB SCH ×3 (13:30→23:29)
[2017-06-28] MEDS ORDERED: BUPIVACAINE 0.25% (MPF) 30 ML INJ ONE (16:40)
[2017-06-28] MEDS ORDERED: DIPHENHYDRAMINE 50 MG INJ IV PRN (17:00)
[2017-06-28] MEDS ORDERED: MEPERIDINE 25 MG INJ IV PRN (17:00)
[2017-06-28] MEDS ORDERED: HYDROmorphONE (0.2 MG/ML) 10ML SYG IV PRN (17:00)
[2017-06-28] MEDS ORDERED: FENTAnyl 50 MCG/ML VIAL IV PRN (17:00)
[2017-06-28] MEDS ORDERED: PROCHLORPERAZINE 10 MG INJ IV PRN (17:00)
[2017-06-28] MEDS ORDERED: ONDANSETRON 4 MG INJ IV PRN ×2 (17:00→19:00)
--- NOTE | 2017-06-28 17:07 | RADRPT ---
PROCEDURE: XR Chest. CLINICAL INDICATION: Preoperative study TECHNIQUE: Single AP view of the chest were obtained COMPARISON: None FINDINGS: The heart and mediastinum are within normal limits. The pulmonary vasculature are unremarkable. The aorta demonstrates atherosclerotic calcifications. Bibasilar linear opacities are seen consistent with mild atelectasis with otherwise no other consolidation or effusion or pneumothorax. Degenerati ve changes are seen within the thoracic spine. There is no acute osseous abnormality. IMPRESSION: Mild bibasilar atelectasis. Atherosclerotic disease. RPTAT: AA .Adair Allen MD, Date Time Electronically viewed and signed by .Adair Allen MD, on 06/28/2017 17:06 .Hayden/
--- NOTE | 2017-06-28 17:40 | HPN ---
Date/Time of Note Date/Time of Note DATE: 06/28/17 TIME: 17:40 Interval H&P Admission Note Pt. seen H&P reviewed: No system changes TRISTAN RUSSELL MD Jun 28, 2017 17:40
[2017-06-28] MEDS ORDERED: MIDAZOLAM 1 MG/ML 2 ML INJ ONE (17:47)
[2017-06-28] MEDS ORDERED: ROCURONIUM 50 MG INJ ONE (17:47)
[2017-06-28] MEDS ORDERED: LIDOCAINE 2% (SDV) 5 ML INJ ONE (17:47)
[2017-06-28] MEDS ORDERED: FENTAnyl 50 MCG/ML VIAL ONE (17:47)
[2017-06-28] MEDS ORDERED: SUCCINYLCHOLINE CHLORIDE 100 MG/5 ML SYG IV ONE (17:47)
[2017-06-28] MEDS ORDERED: PROPOFOL 20 ML ONE (17:47)
[2017-06-28] MEDS ORDERED: PHENYLephrine (100 MCG/ML) 5ML SYG ONE ×2 (18:00→18:14)
[2017-06-28] MEDS ORDERED: DEXAMETHASONE 4 MG/ML 1 ML INJ ONE (18:03)
[2017-06-28] MEDS ORDERED: ONDANSETRON 4 MG INJ ONE (18:03)
[2017-06-28] MEDS ORDERED: HYDROmorphONE 2 MG/ML SYG ONE (18:47)
[2017-06-28] MEDS ORDERED: morphine 2 MG INJ IV PRN (19:00)
[2017-06-28] MEDS ORDERED: OXYCODONE/ACETAMINOPHEN (5/325) TAB PO PRN (19:00)
--- NOTE | 2017-06-28 19:09 | OPR ---
Date/Time of Note Date/Time of Note DATE: 06/28/17 TIME: 18:59 Operative Report Procedure Date: Jun 28, 2017 Preoperative Diagnosis Acute cholecystitis Postoperative Diagnosis Acute gangrenous cholecystitis Operation Performed 1. Laparoscopic cholecystectomy 2. Placement of drain Surgeon: TRISTAN RUSSELL MD Anesthesia Type: general Anesthesiologist: AVIS JAMISON MD Estimated Blood Loss: 100 - 150 ml's Transfusion Required: no Specimens Gallbladder Grafts/Implants: none Tubes/Drains #19 round Teja Complications: no Pt Condition Post Procedure: stable Disposition: PACU Indications Worsening cholecystitis Operative\Procedure Findings Acutely inflamed, edematous, partially gangrenous gallbladder. Procedure Description Satisfactory general endotracheal anesthesia was achieved, the abdomen was prepped and draped in the usual fashion. The abdomen was insufflated with carbon dioxide through an umbilical Veress needle to 15 mmHg pressure. The vent was removed and the umbilical incision extended to 5 mm through which a 5 mm trocar was placed. A 5 mm 0 lens was placed. Laparoscopy showed an acutely inflamed, edematous and partially gangrenous gallbladder. Under direct visualization a 12 mm epigastric trocar was placed as well as two 5 mm right abdominal trochars. Dome of the gallbladder was grasped and retracted superiorly. Edwards's pouch was grasped and retracted inferolaterally. Hepatoduodenal ligament was carefully dissected between the gallbladder and the eun hepatis. The cystic duct was then triply hemoclipped and divided between clips. The cystic artery was triply hemoclipped and divided between clips. A vascular attachments of the gallbladder was divided over clip. The gallbladder was then dissected from below using electrocautery and blunt dissection. Gallbladder was placed intact into an Endo Catch removed via the epigastric route. There was diffuse oozing from the liver bed which was controlled with electrocautery. Clot and some tiny spilled stones were suctioned out. Towards the completion of the procedure irrigant was now returning clearer and clearer. There was no sign of active bleeding. Because of the infection and because of the oozing it was elected to place a drain. A #19 round Teja drain was placed draining the gallbladder fossa and right subhepatic space, exiting laterally through the lateralmost puncture site where it was secured to the skin with a single suture of 2-0 nylon. The fascia of the epigastrium was closed with 2 sutures of 0 Vicryl. The skin punctures were infiltrated with 30 cc of 0.25% plain Marcaine and closed with star. Sponge and needle counts were reported as correct 2. TRISTAN RUSSELL MD Jun 28, 2017 19:09
--- NOTE | 2017-06-28 19:31 | RADRPT ---
PROCEDURE: HIDA scan CLINICAL INDICATION: Patient with abdominal pain. TECHNIQUE: Following the intravenous injection of approximately 7.0 mCi of Tc-99m Mebrofenin, mult iple anterior dynamic images of the abdomen along with numerous planar spot images of the abdomen we re obtained up to 5 hours post injection. COMPARISON: No prior HIDA scans. FINDINGS: The liver is promptly visualized, demonstrates homogeneous distribution of radionuclide. There is a visualization of the common bile duct and gastrointestinal activity within normal time. The gallbladder is not definitely visualized up to 5 hours post injection. IMPRESSION: 1. No definite visualization of the gallbladder up to 5 hours post injection. 2. No evidence of a common bile duct obstruction. RPTAT: HH .Elida Saba MD, Date Time Electronically viewed and signed by .Elida Saba MD, on 06/27/2017 23:29 .L/
[2017-06-28 19:52] LABS: ABNORMAL IP MESSAGE 1; HEMATOCRIT 29.9 % (37.0-47.0); HEMOGLOBIN 9.9 g/dl (12.0-16.0); MEAN CORPUSCULAR HEMOGLOBIN 30.7 pg (29.0-33.0); MEAN CORPUSCULAR HGB CONC 33.1 g/dl (32.0-37.0); MEAN CORPUSCULAR VOLUME 92.6 fl (82.0-101.0); MEAN PLATELET VOLUME 10.2 fl (7.4-10.4); PLATELET COUNT 186 10^3/UL (140-415); RED BLOOD COUNT 3.23 10^6/ul (4.20-5.40); RED CELL DISTRIBUTION WIDTH 14.4 % (11.5-14.5); WHITE BLOOD COUNT 28.7 10^3/ul (4.8-10.8)
[2017-06-28 20:03] LABS: POSITIVE DIFF @See below
--- NOTE | 2017-06-28 22:38 | CONS ---
Date/Time of Note Date/Time of Note DATE: 06/28/17 TIME: 22:34 Assessment/Plan Assessment/Plan Chief Complaint/Hosp Course Impression: 1. cholelithiasis with cholecystitis 2. sepsis as evidenced by leukocytosis and tachycardia 3. anemia of chronic disease 4. RUQ pain Recommendations: 1. HIDA scan 2. surgical eval for cholecystectomy 3. NPO with antibiotics 4. other supportive care to continue Problems: Consultation Date/Type/Reason Admit Date/Time Jun 27, 2017 at 00:36 Date of Consultation: Jun 28, 2017 Type of Consultation: GI Reason for Consultation abdominal pain, fever Hx of Present Illness 71-year-old female who is admitted for leukocytosis and RUQ abdominal pain. She has known gallstones. She has had a past hospitalization at [facility] for gallstone pancreatitis and acute liver failure back in February 2017. She now returns to the emergency room with 2 days of epigastric and right upper quadrant abdominal pain. Abdominal ultrasound showed gallstones, however her white count which was 17 on admission is up to 20,000. Her LFTs are normal. CBD measures 6.5 mm. All point ROS was administered, pertinent positives and negatives in HPI otherwise negative. Gastrointestinal: pain Psychological: no complaints Past Medical History Medical History: high cholesterol, hypertension, hypothyroid, other (Gallstone pancreatitis) Past Surgical History Past Surgical Hx: no surgical history Family History Significant Family History: no pertinent family hx Social History Alcohol Use: none Smoking Status: Never smoker Drug Use: none Exam/Review of Systems Vital Signs Vitals Vital Signs Date Time Temp Pulse Resp B/P Pulse Ox O2 Delivery O2 Flow Rate FiO2 06/28/17 20:34 98.6 105 20 141/70 96 06/28/17 20:20 Nasal Cannula 06/28/17 20:01 2.0 Intake and Output 06/27/17 06/27/17 06/28/17 15:00 23:00 07:00 Intake Total 100 ml 1000 ml Output Total 1200 ml Balance 100 ml -200 ml Exam Constitutional: alert, oriented, well developed Psych: nl mood/affect, no complaints Head: atraumatic, normocephalic Eyes: EOMI, nl conjunctiva, nl lids, nl sclera ENMT: mucosa pink and moist, nl external ears & nose, nl lips & teeth, nl nasal mucosa & septum Neck: non-tender, supple Respiratory: clear to auscultation, normal air movement Cardiovascular: nl pulses, regular rate and rhythm Gastrointestinal: bowel sounds, soft, tender (RUQ) Musculoskeletal: nl extremities to inspection, nl gait and stance Neurological: nl mental status, nl speech, nl strength Results Result Diagram: 06/28/17194406/28/17 0434 Results 24 hrs Laboratory Tests Test 06/28/17 04:34 06/28/17 11:25 06/28/17 19:45 White Blood Count 23.8 H 28.7 #H Red Blood Count 3.33 L 3.23 L Hemoglobin 10.1 L 9.9 L Hematocrit 29.6 L 29.9 L Mean Corpuscular Volume 88.9 92.6 Mean Corpuscular Hemoglobin 30.3 30.7 Mean Corpuscular Hemoglobin Concent 34.1 33.1 Red Cell Distribution Width 14.2 14.4 Platelet Count 214 186 Mean Platelet Volume 10.5 H 10.2 Neutrophils % 82.4 H Lymphocytes % 4.3 L Monocytes % 6.0 Eosinophils % 0.0 Basophils % 0.2 Nucleated Red Blood Cells % 0.0 0.0 Neutrophils # (Manual) 19.6 H 23.1 H Lymphocytes # 1.0 Monocytes # 1.4 H Eosinophils # 0.0 Basophils # 0.1 Nucleated Red Blood Cells # 0.0 Sodium Level 135 Potassium Level 3.1 L Chloride Level 102 Carbon Dioxide Level 26 Anion Gap 10 Blood Urea Nitrogen 14 Creatinine 0.74 Glucose Level 105 Hemoglobin A1c 5.6 Calcium Level 7.9 L Phosphorus Level 2.6 Magnesium Level 1.8 Total Bilirubin 0.6 Direct Bilirubin 0.00 Indirect Bilirubin 0.6 Aspartate Amino Transf (AST/SGOT) 38 Alanine Aminotransferase (ALT/SGPT) 47 Alkaline Phosphatase 101 Total Protein 6.5 Albumin 3.3 Globulin 3.20 Albumin/Globulin Ratio 1.03 Prothrombin Time 18.6 H Prothrombin Time Ratio 1.5 INR International Normalized Ratio 1.54 Activated Partial Thromboplast Time 42.1 H Medications Medications Current Medications Ondansetron HCl (Zofran Inj) 4 mg Q6H PRN IV NAUSEA AND/OR VOMITING Last administered on 06/28/17 20:52; Admin Dose 4 MG; Start 06/27/17 at 03:30 Famotidine (Pepcid Iv) 20 mg Q12 IV Last administered on 06/28/17 20:53; Admin Dose 20 MG; Start 06/27/17 at 09:00 Hydralazine HCl (Apresoline) 10 mg Q4H PRN IV SBP > 160; Start 06/27/17 at 03:30 Morphine Sulfate (morphine) 4 mg Q4H PRN IV SEVERE PAIN LEVEL 7-10 Last administered on 06/28/17 12:25; Admin Dose 4 MG; Start 06/27/17 at 05:00 Miscellaneous Information 1 ea NOTE XX ; Start 06/27/17 at 06:30 Glucose (Glutose) 15 gm Q15M PRN PO DECREASED GLUCOSE; Start 06/27/17 at 06:30 Glucose (Glutose) 22.5 gm Q15M PRN PO DECREASED GLUCOSE; Start 06/27/17 at 06:30 Dextrose (D50w Syringe) 25 ml Q15M PRN IV DECREASED GLUCOSE; Start 06/27/17 at 06:30 Dextrose (D50w Syringe) 50 ml Q15M PRN IV DECREASED GLUCOSE; Start 06/27/17 at 06:30 Glucagon (Glucagen) 1 mg Q15M PRN IM DECREASED GLUCOSE; Start 06/27/17 at 06:30 Glucose 15 gm 15 gm Q15M PRN BUCCAL DECREASED GLUCOSE; Start 06/27/17 at 06:30 Ampicillin Sodium/ Sulbactam Sodium (Unasyn 3gm/NS (Pmx)) 100 ml @ 100 mls/hr Q6 IVPB Last administered on 06/28/17 12:32; Admin Dose 100 MLS/HR; Start at 18:00 Acetaminophen (Tylenol Tab) 650 mg Q6H PRN PO PAIN AND OR ELEVATED TEMP Last administered on 06/28/17 08:30; Admin Dose 650 MG; Start 06/27/17 at 20:30 Oxycodone/ Acetaminophen (Percocet (5/ 325)) 1 tab Q4H PRN PO MILD PAIN (1-3); Start 06/28/17 at 19:00 Oxycodone/ Acetaminophen (Percocet (5/ 325)) 2 tab Q4H PRN PO MODERATE PAIN (4- 6); Start 06/28/17 at 19:00 Morphine Sulfate (morphine) 2 mg ONCE PRN IV SEVERE PAIN LEVEL 7-10; Start 06/28 at 19:00; Stop 07/01/17 at 18:59 Ondansetron HCl (Zofran Inj) 4 mg Q6H PRN IV NAUSEA; Start 06/28/17 at 19:00 COLTON ROMANO MD Jun 28, 2017 22:38
[2017-06-28] MEDS: DEXTROSE 5%-0.45% NACL 1,000 ML IV SCH (23:27)
[2017-06-28] MEDS: OXYCODONE/ACETAMINOPHEN (5/325) TAB PO PRN (23:31)
[2017-06-29 00:27] VITALS: BP 117/59; RESP 20
[2017-06-29] MEDS: AMPICILLIN/SULB 3 GM/NS (PMX) 100 ML IVPB SCH ×3 (06:02→18:16)
[2017-06-29 06:17] LABS: HEMATOCRIT 24.8 % (37.0-47.0); HEMOGLOBIN 8.1 g/dl (12.0-16.0); MEAN CORPUSCULAR HEMOGLOBIN 29.6 pg (29.0-33.0); MEAN CORPUSCULAR HGB CONC 32.7 g/dl (32.0-37.0); MEAN CORPUSCULAR VOLUME 90.5 fl (82.0-101.0); MEAN PLATELET VOLUME 11.1 fl (7.4-10.4); PLATELET COUNT 173 10^3/UL (140-415); RED BLOOD COUNT 2.74 10^6/ul (4.20-5.40); RED CELL DISTRIBUTION WIDTH 14.5 % (11.5-14.5); WHITE BLOOD COUNT 18.1 10^3/ul (4.8-10.8)
[2017-06-29 06:29] LABS: CALCIUM 7.6 mg/dl (8.4-10.2); CREATININE 0.56 mg/dl (0.44-1.00); MAGNESIUM 2.1 mg/dl (1.7-2.5); POTASSIUM 4.2 mmol/L (3.5-5.1)
[2017-06-29 06:30] LABS: ALBUMIN 2.7 g/dl (3.3-4.9); ALBUMIN/GLOBULIN RATIO 0.87; BILIRUBIN,INDIRECT 0.2 mg/dl (0-1.1); BILIRUBIN,TOTAL 0.2 mg/dl (0.2-1.3); CALCIUM 7.6 mg/dl (8.4-10.2); CREATININE 0.59 mg/dl (0.44-1.00); POSITIVE DIFF @See below; POTASSIUM 4.1 mmol/L (3.5-5.1); TOTAL PROTEIN 5.8 g/dl (6.1-8.1)
[2017-06-29 07:18] VITALS: BP 136/67; RESP 18
[2017-06-29] MEDS: OXYCODONE/ACETAMINOPHEN (5/325) TAB PO PRN ×2 (08:37→16:22)
[2017-06-29] MEDS: FAMOTIDINE 20 MG INJ IV SCH ×2 (08:38→20:26)
[2017-06-29] MEDS: DEXTROSE 5%-0.45% NACL 1,000 ML IV SCH ×2 (09:00→12:30)
[2017-06-29 10:07] LABS: GIANT THROMBO% (M) 1 % (0-0); MONOCYTES % (M) 3 % (0-11); PLATELET ESTIMATE NORMAL; POIKILOCYTOSIS 2+ (0-0)
[2017-06-29] MEDS: ONDANSETRON 4 MG INJ IV PRN (11:26)
--- NOTE | 2017-06-29 11:44 | PN ---
Date/Time of Note Date/Time of Note DATE: 06/29/17 TIME: 11:43 Assessment/Plan Lines/Catheters IV Catheter Type (from [facility]): Saline Lock Garza in Place (from [facility]): No Assessment/Plan Chief Complaint/Hosp Course Patient is a 71-year-old female with known gallstones. She has had a past hospitalization at [facility] for gallstone pancreatitis. She now returns to the emergency room with 2 days of epigastric and right upper quadrant abdominal pain. Abdominal ultrasound showed gallstones without evidence of cholecystitis, however her white count which was 17 on admission is up to 20,000. Her LFTs are normal. She has had no fevers, chills or jaundice. Problems: Assessment/Plan Recovering nicely from surgery Continue medical management Follow H&H Subjective 24 Hr Interval Summary Postoperative day #1 Afebrile throughout since surgery Abdominal examination is benign MATILDA drainage serosanguineous Patient nauseated Exam/Review of Systems Vital Signs Vitals Vital Signs Date Time Temp Pulse Resp B/P Pulse Ox O2 Delivery O2 Flow Rate FiO2 06/29/17 09:15 Nasal Cannula 2.0 06/29/17 07:18 97.9 86 18 136/67 93 Intake and Output 06/28/17 06/28/17 06/29/17 15:00 23:00 07:00 Intake Total 100 ml 1800 ml 1140 ml Output Total 152 ml 1480 ml Balance 100 ml 1648 ml -340 ml Results Result Diagram: 06/29/17 0510 06/29/17 0510 TRISTAN RUSSELL MD Jun 29, 2017 11:44
--- NOTE | 2017-06-29 14:05 | CONS ---
Date/Time of Note Date/Time of Note DATE: 06/29/17 TIME: 14:03 Assessment/Plan Assessment/Plan Chief Complaint/Hosp Course Impression: 1. cholelithiasis with cholecystitis, s/p cholecystectomy on 2. sepsis as evidenced by leukocytosis and tachycardia: improved after cholecystectomy 3. anemia of chronic disease 4. RUQ pain Recommendations: 1. post-op carre per Dr. Clayton 2. other supportive care to continue Problems: Consultation Date/Type/Reason Admit Date/Time Jun 27, 2017 at 00:36 Initial Consult Date 06/28/17 Type of Consultation: GI 24 HR Interval Summary Free Text/Dictation complains of nausea and vomiting, abdomina pain improved Constitutional: improved Exam/Review of Systems Vital Signs Vitals Vital Signs Date Time Temp Pulse Resp B/P Pulse Ox O2 Delivery O2 Flow Rate FiO2 06/29/17 09:15 Nasal Cannula 2.0 06/29/17 07:18 97.9 86 18 136/67 93 Intake and Output 06/28/17 06/28/17 06/29/17 15:00 23:00 07:00 Intake Total 100 ml 1800 ml 1140 ml Output Total 152 ml 1480 ml Balance 100 ml 1648 ml -340 ml Exam Constitutional: alert, obese, oriented, well developed Psych: nl mood/affect, no complaints Head: atraumatic, normocephalic Eyes: EOMI, nl conjunctiva, nl lids, nl sclera ENMT: mucosa pink and moist, nl external ears & nose, nl lips & teeth, nl nasal mucosa & septum Neck: non-tender, supple Respiratory: clear to auscultation, normal air movement Cardiovascular: nl pulses, regular rate and rhythm Gastrointestinal: bowel sounds, non-tender, soft Results Result Diagram: 06/29/17 0510 06/29/17 0510 Results 24 hrs Laboratory Tests Test 06/28/17 19:45 06/29/17 05:10 White Blood Count 28.7 #H 18.1 #H Red Blood Count 3.23 L 2.74 L Hemoglobin 9.9 L 8.1 L Hematocrit 29.9 L 24.8 L Mean Corpuscular Volume 92.6 90.5 Mean Corpuscular Hemoglobin 30.7 29.6 Mean Corpuscular Hemoglobin Concent 33.1 32.7 Red Cell Distribution Width 14.4 14.5 Platelet Count 186 173 Mean Platelet Volume 10.2 11.1 H Neutrophils % Lymphocytes % Monocytes % Eosinophils % Basophils % Nucleated Red Blood Cells % 0.0 0.0 Neutrophils # (Manual) 23.1 H 15.9 H Lymphocytes # Monocytes # Eosinophils # Basophils # Nucleated Red Blood Cells # Segmented Neutrophils % (Manual) 86 H Band Neutrophils % (Manual) 10 H Lymphocytes % (Manual) 1 L Monocytes % (Manual) 3 Band Neutrophils # 1.8 H Absolute Lymphocytes (Manual) 0.1 L Absolute Monocytes (Manual) 0.5 Thrombocytosis 1 H Platelet Estimate NORMAL Poikilocytosis 2+ Sodium Level 136 Potassium Level 4.1 Chloride Level 107 Carbon Dioxide Level 24 Anion Gap 9 Blood Urea Nitrogen 13 Creatinine 0.59 Glucose Level 153 Calcium Level 7.6 L Magnesium Level 2.1 Total Bilirubin 0.2 Direct Bilirubin 0.00 Indirect Bilirubin 0.2 Aspartate Amino Transf (AST/SGOT) 61 H Alanine Aminotransferase (ALT/SGPT) 57 Alkaline Phosphatase 83 Total Protein 5.8 L Albumin 2.7 L Globulin 3.10 Albumin/Globulin Ratio 0.87 Medications Medications Current Medications Ondansetron HCl (Zofran Inj) 4 mg Q6H PRN IV NAUSEA AND/OR VOMITING Last administered on 06/29/17 11:26; Admin Dose 4 MG; Start 06/27/17 at 03:30 Famotidine (Pepcid Iv) 20 mg Q12 IV Last administered on 06/29/17 08:38; Admin Dose 20 MG; Start 06/27/17 at 09:00 Hydralazine HCl (Apresoline) 10 mg Q4H PRN IV SBP > 160; Start 06/27/17 at 03:30 Morphine Sulfate (morphine) 4 mg Q4H PRN IV SEVERE PAIN LEVEL 7-10 Last administered on 06/28/17 12:25; Admin Dose 4 MG; Start 06/27/17 at 05:00 Miscellaneous Information 1 ea NOTE XX ; Start 06/27/17 at 06:30 Glucose (Glutose) 15 gm Q15M PRN PO DECREASED GLUCOSE; Start 06/27/17 at 06:30 Glucose (Glutose) 22.5 gm Q15M PRN PO DECREASED GLUCOSE; Start 06/27/17 at 06:30 Dextrose (D50w Syringe) 25 ml Q15M PRN IV DECREASED GLUCOSE; Start 06/27/17 at 06:30 Dextrose (D50w Syringe) 50 ml Q15M PRN IV DECREASED GLUCOSE; Start 06/27/17 at 06:30 Glucagon (Glucagen) 1 mg Q15M PRN IM DECREASED GLUCOSE; Start 06/27/17 at 06:30 Glucose 15 gm 15 gm Q15M PRN BUCCAL DECREASED GLUCOSE; Start 06/27/17 at 06:30 Ampicillin Sodium/ Sulbactam Sodium (Unasyn 3gm/NS (Pmx)) 100 ml @ 100 mls/hr Q6 IVPB Last administered on 06/29/17 12:30; Admin Dose 100 MLS/HR; Start at 18:00 Acetaminophen (Tylenol Tab) 650 mg Q6H PRN PO PAIN AND OR ELEVATED TEMP Last administered on 06/28/17 08:30; Admin Dose 650 MG; Start 06/27/17 at 20:30 Oxycodone/ Acetaminophen (Percocet (5/ 325)) 1 tab Q4H PRN PO MILD PAIN (1-3); Start 06/28/17 at 19:00 Oxycodone/ Acetaminophen (Percocet (5/ 325)) 2 tab Q4H PRN PO MODERATE PAIN (4- 6) Last administered on 06/29/17 08:37; Admin Dose 2 TAB; Start 06/28/17 at 19:00 Morphine Sulfate (morphine) 2 mg ONCE PRN IV SEVERE PAIN LEVEL 7-10; Start 06/28 at 19:00; Stop 07/01/17 at 18:59 Ondansetron HCl 4 mg 4 mg Q6H PRN IV NAUSEA; Start 06/28/17 at 19:00 Dextrose/Sodium Chloride (D5-1/2ns) 1,000 ml @ 100 mls/hr Q10H IV Last administered on 06/29/17 12:30; Admin Dose 100 MLS/HR; Start 06/28/17 at 23:00 COLTON ROMANO MD Jun 29, 2017 14:05
[2017-06-29 15:31] VITALS: BP 139/67; RESP 20
--- NOTE | 2017-06-29 18:07 | PN ---
Date/Time of Note Date/Time of Note DATE: 06/29/17 TIME: 18:02 Assessment/Plan VTE Prophylaxis VTE Prophylaxis Intervention: SCD's Lines/Catheters IV [facility] (from [facility]): Saline Lock Urinary Cath still in place: No Assessment/Plan Chief Complaint/Hosp Course 1. Sepsis secondary to acute gangrenous cholecystitis that is post laparoscopic cholecystectomy with drain placement -IV antibiotic -Pain management 2. History of hypertension -As needed IV antihypertensive for now 3. Anemia, likely of chronic disease -Monitor H&H and transfuse as needed 4. History of hypothyroidism -Resume Synthroid Prophylaxis: SCDs Problems: Subjective 24 Hr Interval Summary Gastrointestinal: pain Exam/Review of Systems Vital Signs Vitals Vital Signs Date Time Temp Pulse Resp B/P Pulse Ox O2 Delivery O2 Flow Rate FiO2 06/29/17 15:31 98.1 82 20 139/67 94 06/29/17 09:15 Nasal Cannula 2.0 Intake and Output 06/28/17 06/28/17 06/29/17 14:59 22:59 06:59 Intake Total 100 ml 1800 ml 1140 ml Output Total 152 ml 1480 ml Balance 100 ml 1648 ml -340 ml Exam Constitutional: alert, oriented Respiratory: clear to auscultation Cardiovascular: regular rate and rhythm Gastrointestinal: soft, tender, No distended Musculoskeletal: nl extremities to inspection Results Result Diagram: 06/29/17 0510 06/29/17 0510 Results 24 hrs Laboratory Tests Test 06/28/17 19:45 06/29/17 05:10 White Blood Count 28.7 #H 18.1 #H Red Blood Count 3.23 L 2.74 L Hemoglobin 9.9 L 8.1 L Hematocrit 29.9 L 24.8 L Mean Corpuscular Volume 92.6 90.5 Mean Corpuscular Hemoglobin 30.7 29.6 Mean Corpuscular Hemoglobin Concent 33.1 32.7 Red Cell Distribution Width 14.4 14.5 Platelet Count 186 173 Mean Platelet Volume 10.2 11.1 H Neutrophils % Lymphocytes % Monocytes % Eosinophils % Basophils % Nucleated Red Blood Cells % 0.0 0.0 Neutrophils # (Manual) 23.1 H 15.9 H Lymphocytes # Monocytes # Eosinophils # Basophils # Nucleated Red Blood Cells # Segmented Neutrophils % (Manual) 86 H Band Neutrophils % (Manual) 10 H Lymphocytes % (Manual) 1 L Monocytes % (Manual) 3 Band Neutrophils # 1.8 H Absolute Lymphocytes (Manual) 0.1 L Absolute Monocytes (Manual) 0.5 Thrombocytosis 1 H Platelet Estimate NORMAL Poikilocytosis 2+ Sodium Level 136 Potassium Level 4.1 Chloride Level 107 Carbon Dioxide Level 24 Anion Gap 9 Blood Urea Nitrogen 13 Creatinine 0.59 Glucose Level 153 Calcium Level 7.6 L Magnesium Level 2.1 Total Bilirubin 0.2 Direct Bilirubin 0.00 Indirect Bilirubin 0.2 Aspartate Amino Transf (AST/SGOT) 61 H Alanine Aminotransferase (ALT/SGPT) 57 Alkaline Phosphatase 83 Total Protein 5.8 L Albumin 2.7 L Globulin 3.10 Albumin/Globulin Ratio 0.87 Medications Medications Current Medications Ondansetron HCl (Zofran Inj) 4 mg Q6H PRN IV NAUSEA AND/OR VOMITING Last administered on 06/29/17 11:26; Admin Dose 4 MG; Start 06/27/17 at 03:30 Famotidine (Pepcid Iv) 20 mg Q12 IV Last administered on 06/29/17 08:38; Admin Dose 20 MG; Start 06/27/17 at 09:00 Hydralazine HCl (Apresoline) 10 mg Q4H PRN IV SBP > 160; Start 06/27/17 at 03:30 Morphine Sulfate (morphine) 4 mg Q4H PRN IV SEVERE PAIN LEVEL 7-10 Last administered on 06/28/17 12:25; Admin Dose 4 MG; Start 06/27/17 at 05:00 Miscellaneous Information 1 ea NOTE XX ; Start 06/27/17 at 06:30 Glucose (Glutose) 15 gm Q15M PRN PO DECREASED GLUCOSE; Start 06/27/17 at 06:30 Glucose (Glutose) 22.5 gm Q15M PRN PO DECREASED GLUCOSE; Start 06/27/17 at 06:30 Dextrose (D50w Syringe) 25 ml Q15M PRN IV DECREASED GLUCOSE; Start 06/27/17 at 06:30 Dextrose (D50w Syringe) 50 ml Q15M PRN IV DECREASED GLUCOSE; Start 06/27/17 at 06:30 Glucagon (Glucagen) 1 mg Q15M PRN IM DECREASED GLUCOSE; Start 06/27/17 at 06:30 Glucose 15 gm 15 gm Q15M PRN BUCCAL DECREASED GLUCOSE; Start 06/27/17 at 06:30 Ampicillin Sodium/ Sulbactam Sodium (Unasyn 3gm/NS (Pmx)) 100 ml @ 100 mls/hr Q6 IVPB Last administered on 06/29/17 12:30; Admin Dose 100 MLS/HR; Start at 18:00 Acetaminophen (Tylenol Tab) 650 mg Q6H PRN PO PAIN AND OR ELEVATED TEMP Last administered on 06/28/17 08:30; Admin Dose 650 MG; Start 06/27/17 at 20:30 Oxycodone/ Acetaminophen (Percocet (5/ 325)) 1 tab Q4H PRN PO MILD PAIN (1-3); Start 06/28/17 at 19:00 Oxycodone/ Acetaminophen (Percocet (5/ 325)) 2 tab Q4H PRN PO MODERATE PAIN (4- 6) Last administered on 06/29/17 16:22; Admin Dose 2 TAB; Start 06/28/17 at 19:00 Morphine Sulfate (morphine) 2 mg ONCE PRN IV SEVERE PAIN LEVEL 7-10; Start 06/28 at 19:00; Stop 07/01/17 at 18:59 Ondansetron HCl 4 mg 4 mg Q6H PRN IV NAUSEA; Start 06/28/17 at 19:00 Dextrose/Sodium Chloride (D5-1/2ns) 1,000 ml @ 100 mls/hr Q10H IV Last administered on 06/29/17 12:30; Admin Dose 100 MLS/HR; Start 06/28/17 at 23:00 MORRO MEYER Jun 29, 2017 18:07
[2017-06-29 19:05] VITALS: BP 165/77; RESP 20
[2017-06-29] MEDS: ATORVASTATIN 80 MG TAB PO SCH (20:26)
[2017-06-29] MEDS ORDERED: morphine 4 MG/ML VIAL IV PRN (21:00)
[2017-06-30] VITALS (8 sets, daily range): BP systolic 151–172; BP diastolic 70–78; PULSE 88–101; RESP 18–20
[2017-06-30] MEDS: AMPICILLIN/SULB 3 GM/NS (PMX) 100 ML IVPB SCH ×5 (00:10→23:23)
[2017-06-30] MEDS: DEXTROSE 5%-0.45% NACL 1,000 ML IV SCH ×4 (00:11→17:37)
[2017-06-30] MEDS: ONDANSETRON 4 MG INJ IV PRN ×4 (00:24→20:01)
[2017-06-30] MEDS: LEVOTHYROXINE 75 MCG TAB PO SCH (06:03)
[2017-06-30 06:28] LABS: BASOPHILS % 0.1 % (0.0-2.0); EOSINOPHILS % 0.1 % (0.0-7.0); HEMATOCRIT 24.2 % (37.0-47.0); LYMPHOCYTES # 1.5 10^3/ul (0.8-2.9); LYMPHOCYTES % 10.1 % (15.0-51.0); MEAN CORPUSCULAR HGB CONC 33.1 g/dl (32.0-37.0); MEAN CORPUSCULAR VOLUME 90.6 fl (82.0-101.0); MEAN PLATELET VOLUME 11.1 fl (7.4-10.4); MONOCYTE # 0.9 10^3/ul (0.3-0.9); MONOCYTES % 6.1 % (0.0-11.0); NEUTROPHILS % 83.2 % (39.0-77.0); PLATELET COUNT 182 10^3/UL (140-415); RED BLOOD COUNT 2.67 10^6/ul (4.20-5.40); RED CELL DISTRIBUTION WIDTH 14.5 % (11.5-14.5); WHITE BLOOD COUNT 14.7 10^3/ul (4.8-10.8)
[2017-06-30 06:51] LABS: ALBUMIN 2.6 g/dl (3.3-4.9); ALBUMIN/GLOBULIN RATIO 0.83; BILIRUBIN,INDIRECT 0.2 mg/dl (0-1.1); BILIRUBIN,TOTAL 0.2 mg/dl (0.2-1.3); CREATININE 0.55 mg/dl (0.44-1.00); POTASSIUM 3.2 mmol/L (3.5-5.1); TOTAL PROTEIN 5.7 g/dl (6.1-8.1)
[2017-06-30] MEDS: FAMOTIDINE 20 MG INJ IV SCH ×2 (08:43→20:16)
[2017-06-30] MEDS: FAMOTIDINE 20 MG TAB PO SCH (08:45)
[2017-06-30] MEDS: hydrALAzine 20 MG INJ IV PRN (09:38)
--- NOTE | 2017-06-30 11:14 | PN ---
Date/Time of Note Date/Time of Note DATE: 06/30/17 TIME: 11:13 Assessment/Plan Lines/Catheters IV Catheter Type (from [facility]): Saline Lock Garza in Place (from [facility]): No Assessment/Plan Chief Complaint/Hosp Course Patient is a 71-year-old female with known gallstones. She has had a past hospitalization at [facility] for gallstone pancreatitis. She now returns to the emergency room with 2 days of epigastric and right upper quadrant abdominal pain. Abdominal ultrasound showed gallstones without evidence of cholecystitis, however her white count which was 17 on admission is up to 20,000. Her LFTs are normal. She has had no fevers, chills or jaundice. Problems: Assessment/Plan Continue medical management Start Reglan 10 mg IV every 6 Subjective 24 Hr Interval Summary Postoperative day #2 Leukocytosis continues to improve Patient, however remains quite nauseated Abdominal examination is benign MATILDA drainage is serous Exam/Review of Systems Vital Signs Vitals Vital Signs Date Time Temp Pulse Resp B/P Pulse Ox O2 Delivery O2 Flow Rate FiO2 06/30/17 10:14 100 160/70 06/30/17 07:15 97.8 20 95 Room Air 06/29/17 09:15 2.0 Intake and Output 06/29/17 06/29/17 06/30/17 15:00 23:00 07:00 Intake Total 200 ml 1590 ml 1020 ml Output Total 100 ml 840 ml Balance 200 ml 1490 ml 180 ml Results Result Diagram: 06/30/17 0531 06/30/17 0531 TRISTAN RUSSELL MD Jun 30, 2017 11:14
[2017-06-30] MEDS: OXYCODONE/ACETAMINOPHEN (5/325) TAB PO PRN ×3 (11:16→20:19)
--- NOTE | 2017-06-30 11:25 | CONS ---
Date/Time of Note Date/Time of Note DATE: 06/30/17 TIME: 11:22 Assessment/Plan Assessment/Plan Chief Complaint/Hosp Course Impression: 1. cholelithiasis with cholecystitis, s/p cholecystectomy on 2. sepsis as evidenced by leukocytosis and tachycardia: improved after cholecystectomy 3. anemia of chronic disease 4. RUQ pain Recommendations: 1. post-op carre per Dr. Clayton 2. other supportive care to continue 3. Dr. Miner to resume care of this patient tomorrow Problems: Consultation Date/Type/Reason Admit Date/Time Jun 27, 2017 at 00:36 Initial Consult Date 06/28/17 Type of Consultation: GI 24 HR Interval Summary Free Text/Dictation has nausea, no vomiting Exam/Review of Systems Vital Signs Vitals Vital Signs Date Time Temp Pulse Resp B/P Pulse Ox O2 Delivery O2 Flow Rate FiO2 06/30/17 10:14 100 160/70 06/30/17 07:15 97.8 20 95 Room Air 06/29/17 09:15 2.0 Intake and Output 06/29/17 06/29/17 06/30/17 15:00 23:00 07:00 Intake Total 200 ml 1590 ml 1020 ml Output Total 100 ml 840 ml Balance 200 ml 1490 ml 180 ml Exam Constitutional: alert, oriented, well developed Psych: nl mood/affect, no complaints Head: atraumatic, normocephalic Eyes: EOMI, nl conjunctiva, nl lids, nl sclera ENMT: mucosa pink and moist, nl external ears & nose, nl lips & teeth, nl nasal mucosa & septum Neck: non-tender, supple Respiratory: clear to auscultation, normal air movement Cardiovascular: nl pulses, regular rate and rhythm Gastrointestinal: bowel sounds, non-tender, soft Results Result Diagram: 06/30/17 0531 06/30/17 0531 Results 24 hrs Laboratory Tests Test 06/30/17 05:31 White Blood Count 14.7 H Red Blood Count 2.67 L Hemoglobin 8.0 L Hematocrit 24.2 L Mean Corpuscular Volume 90.6 Mean Corpuscular Hemoglobin 30.0 Mean Corpuscular Hemoglobin Concent 33.1 Red Cell Distribution Width 14.5 Platelet Count 182 Mean Platelet Volume 11.1 H Neutrophils % 83.2 H Lymphocytes % 10.1 L Monocytes % 6.1 Eosinophils % 0.1 Basophils % 0.1 Nucleated Red Blood Cells % 0.0 Neutrophils # (Manual) 12.2 H Lymphocytes # 1.5 Monocytes # 0.9 Eosinophils # 0.0 Basophils # 0.0 Nucleated Red Blood Cells # 0.0 Sodium Level 135 Potassium Level 3.2 L Chloride Level 102 Carbon Dioxide Level 27 Anion Gap 9 Blood Urea Nitrogen 11 Creatinine 0.55 Glucose Level 121 Calcium Level 8.0 L Total Bilirubin 0.2 Direct Bilirubin 0.00 Indirect Bilirubin 0.2 Aspartate Amino Transf (AST/SGOT) 57 H Alanine Aminotransferase (ALT/SGPT) 64 Alkaline Phosphatase 78 Total Protein 5.7 L Albumin 2.6 L Globulin 3.10 Albumin/Globulin Ratio 0.83 Medications Medications Current Medications Famotidine (Pepcid Iv) 20 mg Q12 IV Last administered on 06/29/17 20:26; Admin Dose 20 MG; Start 06/27/17 at 09:00 Hydralazine HCl (Apresoline) 10 mg Q4H PRN IV SBP > 160 Last administered on 09:38; Admin Dose 10 MG; Start 06/27/17 at 03:30 Miscellaneous Information 1 ea NOTE XX ; Start 06/27/17 at 06:30 Glucose (Glutose) 15 gm Q15M PRN PO DECREASED GLUCOSE; Start 06/27/17 at 06:30 Glucose (Glutose) 22.5 gm Q15M PRN PO DECREASED GLUCOSE; Start 06/27/17 at 06:30 Dextrose (D50w Syringe) 25 ml Q15M PRN IV DECREASED GLUCOSE; Start 06/27/17 at 06:30 Dextrose (D50w Syringe) 50 ml Q15M PRN IV DECREASED GLUCOSE; Start 06/27/17 at 06:30 Glucagon (Glucagen) 1 mg Q15M PRN IM DECREASED GLUCOSE; Start 06/27/17 at 06:30 Glucose 15 gm 15 gm Q15M PRN BUCCAL DECREASED GLUCOSE; Start 06/27/17 at 06:30 Ampicillin Sodium/ Sulbactam Sodium (Unasyn 3gm/NS (Pmx)) 100 ml @ 100 mls/hr Q6 IVPB Last administered on 06/30/17 06:03; Admin Dose 100 MLS/HR; Start at 18:00 Acetaminophen (Tylenol Tab) 650 mg Q6H PRN PO PAIN AND OR ELEVATED TEMP Last administered on 06/28/17 08:30; Admin Dose 650 MG; Start 06/27/17 at 20:30 Oxycodone/ Acetaminophen (Percocet (5/ 325)) 1 tab Q4H PRN PO MILD PAIN (1-3); Start 06/28/17 at 19:00 Oxycodone/ Acetaminophen (Percocet (5/ 325)) 2 tab Q4H PRN PO MODERATE PAIN (4- 6) Last administered on 06/30/17 11:16; Admin Dose 2 TAB; Start 06/28/17 at 19:00 Morphine Sulfate (morphine) 2 mg ONCE PRN IV SEVERE PAIN LEVEL 7-10; Start 06/28 at 19:00; Stop 07/01/17 at 18:59 Ondansetron HCl 4 mg 4 mg Q6H PRN IV NAUSEA; Start 06/28/17 at 19:00 Dextrose/Sodium Chloride (D5-1/2ns) 1,000 ml @ 100 mls/hr Q10H IV Last administered on 06/30/17 01:11; Admin Dose 100 MLS/HR; Start 06/28/17 at 23:00 Atorvastatin Calcium (Lipitor) 80 mg QHS PO Last administered on 06/29/17 20:26 ; Admin Dose 80 MG; Start 06/29/17 at 21:00 Famotidine (Pepcid) 20 mg DAILY PO Last administered on 06/30/17 08:45; Admin Dose 20 MG; Start 06/30/17 at 09:00 Morphine Sulfate (morphine) 4 mg Q3H PRN IV SEVERE PAIN LEVEL 7-10; Start at 21:00 Ondansetron HCl (Zofran Inj) 4 mg Q4 PRN IV NAUSEA AND/OR VOMITING; Start at 13:00; Status COLTON ROMERO MD Jun 30, 2017 11:25
[2017-06-30] MEDS: METOCLOPRAMIDE 10 MG INJ IV SCH ×3 (13:37→23:23)
[2017-06-30] MEDS ORDERED: POTASSIUM CHLORIDE (SR) 20 MEQ TAB PO STA (13:43)
--- NOTE | 2017-06-30 19:56 | PN ---
Date/Time of Note Date/Time of Note DATE: 06/30/17 TIME: 19:54 Assessment/Plan VTE Prophylaxis VTE Prophylaxis Intervention: LMWH Lines/Catheters IV Catheter Type (from Nrs): Saline Lock Urinary Cath still in place: No Assessment/Plan Chief Complaint/Hosp Course 71 yo female w h/o hypertension presneted w gangrenous cholecystitis, s/p cholecystectomy 1. Sepsis secondary to acute gangrenous cholecystitis - status post laparoscopic cholecystectomy with drain placement -IV antibiotic -Pain management 2. History of hypertension -As needed IV antihypertensive for now 3. Anemia, likely of chronic disease -Monitor H&H and transfuse as needed 4. History of hypothyroidism -Resume Synthroid Prophylaxis: SCDs Problems: Problems: Subjective 24 Hr Interval Summary Free Text/Dictation Having nausea Some RUQ pain Not able to eat Passed BM yesterday Exam/Review of Systems Vital Signs Vitals Vital Signs Date Time Temp Pulse Resp B/P Pulse Ox O2 Delivery O2 Flow Rate FiO2 06/30/17 14:00 98.7 91 18 169/73 95 06/30/17 07:15 Room Air 06/29/17 09:15 2.0 Intake and Output 06/29/17 06/29/17 06/30/17 15:00 23:00 07:00 Intake Total 200 ml 1590 ml 1020 ml Output Total 100 ml 840 ml Balance 200 ml 1490 ml 180 ml Results Result Diagram: 06/30/17 0531 06/30/17 0531 Results 24 hrs Laboratory Tests Test 06/30/17 05:31 White Blood Count 14.7 H Red Blood Count 2.67 L Hemoglobin 8.0 L Hematocrit 24.2 L Mean Corpuscular Volume 90.6 Mean Corpuscular Hemoglobin 30.0 Mean Corpuscular Hemoglobin Concent 33.1 Red Cell Distribution Width 14.5 Platelet Count 182 Mean Platelet Volume 11.1 H Neutrophils % 83.2 H Lymphocytes % 10.1 L Monocytes % 6.1 Eosinophils % 0.1 Basophils % 0.1 Nucleated Red Blood Cells % 0.0 Neutrophils # (Manual) 12.2 H Lymphocytes # 1.5 Monocytes # 0.9 Eosinophils # 0.0 Basophils # 0.0 Nucleated Red Blood Cells # 0.0 Sodium Level 135 Potassium Level 3.2 L Chloride Level 102 Carbon Dioxide Level 27 Anion Gap 9 Blood Urea Nitrogen 11 Creatinine 0.55 Glucose Level 121 Calcium Level 8.0 L Total Bilirubin 0.2 Direct Bilirubin 0.00 Indirect Bilirubin 0.2 Aspartate Amino Transf (AST/SGOT) 57 H Alanine Aminotransferase (ALT/SGPT) 64 Alkaline Phosphatase 78 Total Protein 5.7 L Albumin 2.6 L Globulin 3.10 Albumin/Globulin Ratio 0.83 Medications Medications Current Medications Famotidine (Pepcid Iv) 20 mg Q12 IV Last administered on 06/29/17 20:26; Admin Dose 20 MG; Start 06/27/17 at 09:00 Hydralazine HCl (Apresoline) 10 mg Q4H PRN IV SBP > 160 Last administered on 09:38; Admin Dose 10 MG; Start 06/27/17 at 03:30 Miscellaneous Information 1 ea NOTE XX ; Start 06/27/17 at 06:30 Glucose (Glutose) 15 gm Q15M PRN PO DECREASED GLUCOSE; Start 06/27/17 at 06:30 Glucose (Glutose) 22.5 gm Q15M PRN PO DECREASED GLUCOSE; Start 06/27/17 at 06:30 Dextrose (D50w Syringe) 25 ml Q15M PRN IV DECREASED GLUCOSE; Start 06/27/17 at 06:30 Dextrose (D50w Syringe) 50 ml Q15M PRN IV DECREASED GLUCOSE; Start 06/27/17 at 06:30 Glucagon (Glucagen) 1 mg Q15M PRN IM DECREASED GLUCOSE; Start 06/27/17 at 06:30 Glucose 15 gm 15 gm Q15M PRN BUCCAL DECREASED GLUCOSE; Start 06/27/17 at 06:30 Ampicillin Sodium/ Sulbactam Sodium (Unasyn 3gm/NS (Pmx)) 100 ml @ 100 mls/hr Q6 IVPB Last administered on 06/30/17 17:37; Admin Dose 100 MLS/HR; Start at 18:00 Acetaminophen (Tylenol Tab) 650 mg Q6H PRN PO PAIN AND OR ELEVATED TEMP Last administered on 06/28/17 08:30; Admin Dose 650 MG; Start 06/27/17 at 20:30 Oxycodone/ Acetaminophen (Percocet (5/ 325)) 1 tab Q4H PRN PO MILD PAIN (1-3); Start 06/28/17 at 19:00 Oxycodone/ Acetaminophen (Percocet (5/ 325)) 2 tab Q4H PRN PO MODERATE PAIN (4- 6) Last administered on 06/30/17 15:50; Admin Dose 2 TAB; Start 06/28/17 at 19:00 Morphine Sulfate (morphine) 2 mg ONCE PRN IV SEVERE PAIN LEVEL 7-10; Start 06/28 at 19:00; Stop 07/01/17 at 18:59 Ondansetron HCl 4 mg 4 mg Q6H PRN IV NAUSEA; Start 06/28/17 at 19:00 Dextrose/Sodium Chloride (D5-1/2ns) 1,000 ml @ 100 mls/hr Q10H IV Last administered on 06/30/17 17:37; Admin Dose 100 MLS/HR; Start 06/28/17 at 23:00 Atorvastatin Calcium (Lipitor) 80 mg QHS PO Last administered on 06/29/17 20:26 ; Admin Dose 80 MG; Start 06/29/17 at 21:00 Famotidine (Pepcid) 20 mg DAILY PO Last administered on 06/30/17 08:45; Admin Dose 20 MG; Start 06/30/17 at 09:00 Morphine Sulfate (morphine) 4 mg Q3H PRN IV SEVERE PAIN LEVEL 7-10; Start at 21:00 Ondansetron HCl (Zofran Inj) 4 mg Q4 PRN IV NAUSEA AND/OR VOMITING; Start at 13:00 Metoclopramide HCl (Reglan) 10 mg Q6 IV Last administered on 06/30/17 17:37; Admin Dose 10 MG; Start 06/30/17 at 14:00 KELI AVILEZ MD Jun 30, 2017 19:56
[2017-06-30] MEDS: ATORVASTATIN 80 MG TAB PO SCH (20:17)
[2017-07-01] MEDS: ONDANSETRON 4 MG INJ IV PRN (00:34)
[2017-07-01] MEDS: hydrALAzine 20 MG INJ IV PRN ×2 (01:22→07:28)
[2017-07-01] MEDS ORDERED: hydrALAzine 20 MG INJ IV PRN (02:00)
[2017-07-01 02:11] VITALS: BP 153/67; RESP 16
[2017-07-01] MEDS: AMPICILLIN/SULB 3 GM/NS (PMX) 100 ML IVPB SCH ×4 (05:12→23:37)
[2017-07-01] MEDS: METOCLOPRAMIDE 10 MG INJ IV SCH (05:13)
[2017-07-01] MEDS ORDERED: LORAZEPAM 2 MG INJ IV ONE (06:00)
[2017-07-01] MEDS: LEVOTHYROXINE 75 MCG TAB PO SCH (06:33)
[2017-07-01] MEDS: FAMOTIDINE 20 MG INJ IV SCH (07:28)
[2017-07-01] MEDS: FAMOTIDINE 20 MG TAB PO SCH (07:34)
--- NOTE | 2017-07-01 07:36 | RADRPT ---
PROCEDURE: XR Chest. CLINICAL INDICATION: Shortness of breath TECHNIQUE: Single AP view of the chest were obtained COMPARISON: None FINDINGS: The heart is moderately enlarged. The pulmonary vasculature are enlarged bilaterally. The aorta dem onstrates atherosclerotic calcifications. There are mild patchy bibasilar opacities present with sm all bilateral pleural effusions. This is unchanged. Degenerative changes are seen within the thorac ic spine. There is no acute osseous abnormality. IMPRESSION: There is stable cardiomegaly and mild vascular congestion with the presence of small bibasilar opa cities and small bilateral pleural effusions. This is overall unchanged. RPTAT: AA .Adair Allen MD, Date Time Electronically viewed and signed by .Adair Allen MD, MD on 07/01/2017 07:35 .[place]den/
[2017-07-01 07:39] VITALS: BP 168/77; RESP 18
[2017-07-01 08:47] VITALS: BP 133/60; PULSE 119; RESP 18
[2017-07-01] MEDS ORDERED: FUROSEMIDE 40 MG INJ IV ONE (10:00)
[2017-07-01 10:08] LABS: BASOPHILS % 0.1 % (0.0-2.0); EOSINOPHILS % 0.3 % (0.0-7.0); HEMATOCRIT 26.4 % (37.0-47.0); LYMPHOCYTES # 1.3 10^3/ul (0.8-2.9); LYMPHOCYTES % 13.8 % (15.0-51.0); MEAN CORPUSCULAR HEMOGLOBIN 29.5 pg (29.0-33.0); MEAN CORPUSCULAR HGB CONC 34.1 g/dl (32.0-37.0); MEAN CORPUSCULAR VOLUME 86.6 fl (82.0-101.0); MEAN PLATELET VOLUME 10.1 fl (7.4-10.4); MONOCYTE # 0.9 10^3/ul (0.3-0.9); MONOCYTES % 9.3 % (0.0-11.0); PLATELET COUNT 242 10^3/UL (140-415); RED BLOOD COUNT 3.05 10^6/ul (4.20-5.40); RED CELL DISTRIBUTION WIDTH 14.6 % (11.5-14.5); WHITE BLOOD COUNT 9.5 10^3/ul (4.8-10.8)
[2017-07-01 10:34] LABS: ALBUMIN 2.9 g/dl (3.3-4.9); ALBUMIN/GLOBULIN RATIO 0.87; BILIRUBIN,INDIRECT 0.7 mg/dl (0-1.1); BILIRUBIN,TOTAL 0.7 mg/dl (0.2-1.3); CALCIUM 8.4 mg/dl (8.4-10.2); CREATININE 0.53 mg/dl (0.44-1.00); POTASSIUM 3.3 mmol/L (3.5-5.1); TOTAL PROTEIN 6.2 g/dl (6.1-8.1)
--- NOTE | 2017-07-01 11:01 | PN ---
Date/Time of Note Date/Time of Note DATE: 07/01/17 TIME: 10:59 Assessment/Plan Lines/Catheters IV Catheter Type (from [facility]): Saline Lock Garza in Place (from [facility]): No Assessment/Plan Chief Complaint/Hosp Course Patient is a 71-year-old female with known gallstones. She has had a past hospitalization at [facility] and [facility] for gallstone pancreatitis. She now returns to the emergency room with 2 days of epigastric and right upper quadrant abdominal pain. Abdominal ultrasound showed gallstones without evidence of cholecystitis, however her white count which was 17 on admission is up to 20,000. Her LFTs are normal. She has had no fevers, chills or jaundice. Problems: Assessment/Plan Patient's abdominal examination is benign I removed the patient's MATILDA drain today at the bedside From the surgical standpoint patient is cleared for discharge with follow-up in 1 week pending further evaluation of medical issues. When discharged, patient will need p.o. pain medications and antibiotics. Subjective 24 Hr Interval Summary Postoperative day #3 Patient has been afebrile since surgery. Leukocytosis has resolved Slight bump upwards in alk phos Exam/Review of Systems Vital Signs Vitals Vital Signs Date Time Temp Pulse Resp B/P Pulse Ox O2 Delivery O2 Flow Rate FiO2 07/01/17 08:47 119 18 133/60 99 Room Air 07/01/17 07:39 98.3 06/29/17 09:15 2.0 Intake and Output 06/30/17 06/30/17 07/01/17 15:00 23:00 07:00 Intake Total 200 ml 1640 ml 1250 ml Output Total 850 ml 990 ml Balance 200 ml 790 ml 260 ml Results Result Diagram: 07/01/17 0955 07/01/17 0955 TRISTAN RUSSELL MD Jul 01, 2017 11:01
[2017-07-01] MEDS: ENOXAPARIN 40 MG/0.4 ML SYG SC SCH (11:30)
[2017-07-01] MEDS ORDERED: IOHEXOL 100 ML ONE (12:08)
[2017-07-01] MEDS ORDERED: SOD CHLORIDE 0.9% 100 ML ONE (12:08)
[2017-07-01 13:20] VITALS: BP 129/60; RESP 18
[2017-07-01] MEDS ORDERED: POTASSIUM CHLORIDE (SR) 20 MEQ TAB PO STA (13:32)
--- NOTE | 2017-07-01 13:43 | RADRPT ---
PROCEDURE: CTA Chest CLINICAL INDICATION: Dyspnea, tachycardia TECHNIQUE: CTA of the chest was performed following the uncomplicated IV administration of 100 cc Omnipaque-300. Coronal and sagittal images were reconstructed from the axial data set. 3-D volumet shantanu rendered post processing was performed as well. One or more of the following dose reduction jacinta hniques were used: automated exposure control, adjustment of the mA and/or kV according to patient s ize, use of iterative reconstruction technique. CTDI = 12.48 mGy. DLP = 433.75 mGy-cm. COMPARISON: Chest x-ray, 07/01/2017 FINDINGS: No filling defect is present to suggest pulmonary embolism. There is no evidence for pulmonary kimi rial hypertension. There are mild bilateral pleural effusions, with associated bibasilar atelectasis. Focal consolidati on is seen anterolaterally in the left upper lobe, concerning for pneumonia. No pulmonary edema or p neumothorax is identified. The central tracheobronchial tree is clear. No pulmonary nodule or mass i s seen. The heart is mildly enlarged. Small amount of pericardial fluid is noted. There is no thoracic aorti c aneurysm or dissection. Coronary arterial and aortic atherosclerotic calcifications are present. T here is no mediastinal, hilar, axillary or supraclavicular lymphadenopathy. Gallbladder is surgically absent. Common bile duct stent is identified. The osseous structures are remarkable for degenerative spondylosis of the spine. No osteolytic or osteoblastic lesion is seen. IMPRESSION: 1. No pulmonary embolism is identified. 2. Focal consolidation is seen anterolaterally in the left upper lobe, concerning for pneumonia. 3. There are mild bilateral pleural effusions, with associated bibasilar atelectasis. 4. Mild cardiomegaly and small amount of pericardial fluid are present. Coronary arterial and aorti c atherosclerotic calcifications are noted. 5. Gallbladder is surgically absent. Common bile duct stent is in place. 6. No mass or lymphadenopathy is seen. RPTAT: PP .Bairon Milian MD, MD Date Time Electronically viewed and signed by .Bairon Milian MD, MD on 07/01/2017 13:42 .R/
--- NOTE | 2017-07-01 15:05 | PN ---
Date/Time of Note Date/Time of Note DATE: 07/01/17 TIME: 15:03 Assessment/Plan VTE Prophylaxis VTE Prophylaxis Intervention: LMWH Lines/Catheters IV Catheter Type (from Rust): Saline Lock Urinary Cath still in place: No Assessment/Plan Chief Complaint/Hosp Course 71 yo female w h/o hypertension presneted w gangrenous cholecystitis, s/p cholecystectomy. Now with tachycardia, acute CHF exacerbation Acute CHF exacerbation: - Continue IV lasix - TTE pending Sepsis secondary to acute cholecystitis - status post laparoscopic cholecystectomy with drain placement -IV antibiotic -Pain management History of hypertension -Continue antihypertensives Anemia, likely of chronic disease -Monitor H&H and transfuse as needed History of hypothyroidism -Resume Synthroid Prophylaxis: SCDs Problems: Subjective 24 Hr Interval Summary Free Text/Dictation Patient with sinus tachy Has dyspnea CT-A shows no PE. Has pulmonary congestion w effusions. Possible pneumonia Given IV lasix Exam/Review of Systems Vital Signs Vitals Vital Signs Date Time Temp Pulse Resp B/P Pulse Ox O2 Delivery O2 Flow Rate FiO2 07/01/17 13:20 99.1 131 18 129/60 96 07/01/17 08:47 Room Air 06/29/17 09:15 2.0 Intake and Output 06/30/17 06/30/17 07/01/17 15:00 23:00 07:00 Intake Total 200 ml 1640 ml 1250 ml Output Total 850 ml 990 ml Balance 200 ml 790 ml 260 ml Exam Comfortable appearing CV: Tachy, regular, 2/6 sysotlic murmur, +++ JVD Abdomen soft, nt, nd, drain removed Lungs clear, nonlabored No peripheral edema Results Result Diagram: 07/01/1795407/01/17 0955 Results 24 hrs Laboratory Tests Test 07/01/17 07:50 07/01/17 09:55 Troponin I < 0.012 White Blood Count 9.5 # Red Blood Count 3.05 L Hemoglobin 9.0 L Hematocrit 26.4 L Mean Corpuscular Volume 86.6 Mean Corpuscular Hemoglobin 29.5 Mean Corpuscular Hemoglobin Concent 34.1 Red Cell Distribution Width 14.6 H Platelet Count 242 # Mean Platelet Volume 10.1 Neutrophils % 76.0 Lymphocytes % 13.8 L Monocytes % 9.3 Eosinophils % 0.3 Basophils % 0.1 Nucleated Red Blood Cells % 0.0 Neutrophils # (Manual) 7.2 Lymphocytes # 1.3 Monocytes # 0.9 Eosinophils # 0.0 Basophils # 0.0 Nucleated Red Blood Cells # 0.0 Sodium Level 133 L Potassium Level 3.3 L Chloride Level 99 Carbon Dioxide Level 26 Anion Gap 11 Blood Urea Nitrogen 9 Creatinine 0.53 Glucose Level 105 Calcium Level 8.4 Total Bilirubin 0.7 Direct Bilirubin 0.00 Indirect Bilirubin 0.7 Aspartate Amino Transf (AST/SGOT) 91 H Alanine Aminotransferase (ALT/SGPT) 104 H Alkaline Phosphatase 134 #H Total Protein 6.2 Albumin 2.9 L Globulin 3.30 H Albumin/Globulin Ratio 0.87 Medications Medications Current Medications Miscellaneous Information 1 ea NOTE XX ; Start 06/27/17 at 06:30 Glucose (Glutose) 15 gm Q15M PRN PO DECREASED GLUCOSE; Start 06/27/17 at 06:30 Glucose (Glutose) 22.5 gm Q15M PRN PO DECREASED GLUCOSE; Start 06/27/17 at 06:30 Dextrose (D50w Syringe) 25 ml Q15M PRN IV DECREASED GLUCOSE; Start 06/27/17 at 06:30 Dextrose (D50w Syringe) 50 ml Q15M PRN IV DECREASED GLUCOSE; Start 06/27/17 at 06:30 Glucagon (Glucagen) 1 mg Q15M PRN IM DECREASED GLUCOSE; Start 06/27/17 at 06:30 Glucose 15 gm 15 gm Q15M PRN BUCCAL DECREASED GLUCOSE; Start 06/27/17 at 06:30 Ampicillin Sodium/ Sulbactam Sodium (Unasyn 3gm/NS (Pmx)) 100 ml @ 100 mls/hr Q6 IVPB Last administered on 07/01/17 12:38; Admin Dose 100 MLS/HR; Start at 18:00 Acetaminophen (Tylenol Tab) 650 mg Q6H PRN PO PAIN AND OR ELEVATED TEMP Last administered on 06/28/17 08:30; Admin Dose 650 MG; Start 06/27/17 at 20:30 Oxycodone/ Acetaminophen (Percocet (5/ 325)) 1 tab Q4H PRN PO MILD PAIN (1-3); Start 06/28/17 at 19:00 Oxycodone/ Acetaminophen (Percocet (5/ 325)) 2 tab Q4H PRN PO MODERATE PAIN (4- 6) Last administered on 06/30/17 20:19; Admin Dose 2 TAB; Start 06/28/17 at 19:00 Morphine Sulfate (morphine) 2 mg ONCE PRN IV SEVERE PAIN LEVEL 7-10; Start 06/28 at 19:00; Stop 07/01/17 at 18:59 Atorvastatin Calcium (Lipitor) 80 mg QHS PO Last administered on 06/30/17 20:17 ; Admin Dose 80 MG; Start 06/29/17 at 21:00 Famotidine (Pepcid) 20 mg DAILY PO Last administered on 06/30/17 08:45; Admin Dose 20 MG; Start 06/30/17 at 09:00 Ondansetron HCl (Zofran Inj) 4 mg Q4 PRN IV NAUSEA AND/OR VOMITING Last administered on 07/01/17 00:34; Admin Dose 4 MG; Start 06/30/17 at 13:00 Enoxaparin Sodium (Lovenox) 40 mg DAILY SC ; Start 07/01/17 at 11:30 KELI AVILEZ MD Jul 01, 2017 15:05
[2017-07-01] MEDS: ACETAMINOPHEN 325 MG TAB PO PRN (17:13)
[2017-07-01] MEDS: FUROSEMIDE 20 MG INJ IV SCH (18:07)
[2017-07-01 19:40] VITALS: BP 158/74; RESP 20
[2017-07-01] MEDS: ATORVASTATIN 80 MG TAB PO SCH (20:51)
[2017-07-02 02:20] VITALS: BP 137/65; RESP 20
[2017-07-02] MEDS: ACETAMINOPHEN 325 MG TAB PO PRN (02:24)
[2017-07-02] MEDS: AMPICILLIN/SULB 3 GM/NS (PMX) 100 ML IVPB SCH ×4 (06:03→23:44)
[2017-07-02] MEDS: LEVOTHYROXINE 75 MCG TAB PO SCH (06:05)
[2017-07-02 06:06] VITALS: BP 139/65; PULSE 92; RESP 20
[2017-07-02] MEDS: FUROSEMIDE 20 MG INJ IV SCH (06:06)
[2017-07-02 07:53] VITALS: BP 127/63; RESP 20
[2017-07-02] MEDS: FAMOTIDINE 20 MG TAB PO SCH (08:48)
[2017-07-02] MEDS: ENOXAPARIN 40 MG/0.4 ML SYG SC SCH (08:54)
[2017-07-02] MEDS: METOPROLOL 25 MG TAB PO SCH ×2 (10:37→21:09)
[2017-07-02 10:55] LABS: BASOPHILS % 0.2 % (0.0-2.0); EOSINOPHILS # 0.1 10^3/ul (0.0-0.5); EOSINOPHILS % 0.8 % (0.0-7.0); HEMATOCRIT 27.9 % (37.0-47.0); HEMOGLOBIN 9.7 g/dl (12.0-16.0); LYMPHOCYTES # 1.4 10^3/ul (0.8-2.9); LYMPHOCYTES % 15.6 % (15.0-51.0); MEAN CORPUSCULAR HEMOGLOBIN 30.2 pg (29.0-33.0); MEAN CORPUSCULAR HGB CONC 34.8 g/dl (32.0-37.0); MEAN CORPUSCULAR VOLUME 86.9 fl (82.0-101.0); MONOCYTE # 0.9 10^3/ul (0.3-0.9); MONOCYTES % 9.5 % (0.0-11.0); PLATELET COUNT 294 10^3/UL (140-415); RED BLOOD COUNT 3.21 10^6/ul (4.20-5.40); RED CELL DISTRIBUTION WIDTH 14.7 % (11.5-14.5); WHITE BLOOD COUNT 9.2 10^3/ul (4.8-10.8)
[2017-07-02 11:18] LABS: IRON 26 ug/dl (35-150)
[2017-07-02 11:19] LABS: ALBUMIN 3.5 g/dl (3.3-4.9); ALBUMIN/GLOBULIN RATIO 0.94; BILIRUBIN,INDIRECT 0.9 mg/dl (0-1.1); BILIRUBIN,TOTAL 0.9 mg/dl (0.2-1.3); CALCIUM 8.7 mg/dl (8.4-10.2); CREATININE 0.66 mg/dl (0.44-1.00); POTASSIUM 3.4 mmol/L (3.5-5.1); TOTAL PROTEIN 7.2 g/dl (6.1-8.1)
[2017-07-02 11:28] LABS: TOTAL IRON BINDING CAPACITY 264 ug/dl (241-421)
--- NOTE | 2017-07-02 12:53 | CONS ---
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 Only mild LVH but has a prominent septal knuckle which is not uncommon at her age. She has clear obstruction with ADA and MR. This is treated with beta blockers and avoiding dehydration. Cholecystitis s/p cholecystectomy 06/28/17 HTN -metoprolol 25mg BID, uptitrate tomorrow if tolerates -no further diuresis as euvolemic, avoid dehydration -can consider repeating echo on medical therapy later this admission or outpt Problems: Consultation Date/Type/Reason Admit Date/Time Jun 27, 2017 at 00:36 Date of Consultation: Jul 02, 2017 Type of Consultation: Cardiology Reason for Consultation Abnormal echo, SOB, tachycardia Referring Provider: KELI AVILEZ MD Hx of Present Illness 71 yo F with a h/o HTN, gallstone pancreatitis who presented with abdominal pain and was found to have cholecystitis now s/p lap cholecystectomy 06/28/2017. Yesterday the pt had sinus tachycardia, SOB and was diuresed for possible CHF. An echo was checked showing hyperdynamic LV function with LVOT obstruction for which cardiology is consulted. The pt's family member assisted with interpretation. The pt only has complaints of RUQ pain currently. No chest pain or SOB but did have palpitations and SOB yesterday. In general no exertional chest pain or SOB. per HPI, otherwise negative Constitutional: improved Gastrointestinal: pain Psychological: nl mood/affect, no complaints Past Medical History per HPI Medical History: high cholesterol, hypertension, hypothyroid, other (Gallstone pancreatitis) Past Surgical History Past Surgical Hx: no surgical history Social History Alcohol Use: none Smoking Status: Never smoker Drug Use: none Exam/Review of Systems Vital Signs Vitals Vital Signs Date Time Temp Pulse Resp B/P Pulse Ox O2 Delivery O2 Flow Rate FiO2 07/02/17 09:00 Nasal Cannula 2.0 07/02/17 07:53 98.8 102 20 127/63 98 Intake and Output 07/01/17 07/01/17 07/02/17 14:59 22:59 06:59 Intake Total 450 ml 1100 ml 550 ml Output Total 1000 ml Balance 450 ml 1100 ml -450 ml Exam Constitutional: alert, oriented Psych: nl mood/affect, no complaints Head: atraumatic, normocephalic Neck: No jvd Respiratory: diminished breath sounds, No clear to auscultation Cardiovascular: regular rate and rhythm, systolic murmur (3/6 SONIA), No edema Gastrointestinal: soft, No distended, No non-tender (mild RUQ) Neurological: nl mental status, nl speech Results Result Diagram: 07/02/17 1038 07/02/17 1038 Results 24 hrs Laboratory Tests Test 07/01/17 13:46 07/02/17 10:38 Troponin I 0.113 White Blood Count 9.2 Red Blood Count 3.21 L Hemoglobin 9.7 L Hematocrit 27.9 L Mean Corpuscular Volume 86.9 Mean Corpuscular Hemoglobin 30.2 Mean Corpuscular Hemoglobin Concent 34.8 Red Cell Distribution Width 14.7 H Platelet Count 294 # Mean Platelet Volume 10.0 Neutrophils % 73.0 Lymphocytes % 15.6 Monocytes % 9.5 Eosinophils % 0.8 Basophils % 0.2 Nucleated Red Blood Cells % 0.0 Neutrophils # (Manual) 6.7 Lymphocytes # 1.4 Monocytes # 0.9 Eosinophils # 0.1 Basophils # 0.0 Nucleated Red Blood Cells # 0.0 Sodium Level 136 Potassium Level 3.4 L Chloride Level 96 L Carbon Dioxide Level 29 Anion Gap 14 Blood Urea Nitrogen 13 Creatinine 0.66 Glucose Level 105 Calcium Level 8.7 Iron Level 26 L Total Iron Binding Capacity 264 Percent Iron Saturation 10 L Ferritin 326.0 H Total Bilirubin 0.9 Direct Bilirubin 0.00 Indirect Bilirubin 0.9 Aspartate Amino Transf (AST/SGOT) 66 H Alanine Aminotransferase (ALT/SGPT) 84 H Alkaline Phosphatase 132 H Total Protein 7.2 # Albumin 3.5 Globulin 3.70 H Albumin/Globulin Ratio 0.94 Medications Medications Current Medications Miscellaneous Information 1 ea NOTE XX ; Start 06/27/17 at 06:30 Dextrose (D50w Syringe) 25 ml Q15M PRN IV DECREASED GLUCOSE; Start 06/27/17 at 06:30 Dextrose 50 ml 50 ml Q15M PRN IV DECREASED GLUCOSE; Start 06/27/17 at 06:30 Ampicillin Sodium/ Sulbactam Sodium (Unasyn 3gm/NS (Pmx)) 100 ml @ 100 mls/hr Q6 IVPB Last administered on 07/02/17t 11:30; Admin Dose 100 MLS/HR; Start at 18:00 Acetaminophen (Tylenol Tab) 650 mg Q6H PRN PO PAIN AND OR ELEVATED TEMP Last administered on 07/02/17 02:24; Admin Dose 650 MG; Start 06/27/17 at 20:30 Oxycodone/ Acetaminophen (Percocet (5/ 325)) 1 tab Q4H PRN PO MILD PAIN (1-3); Start 06/28/17 at 19:00 Oxycodone/ Acetaminophen (Percocet (5/ 325)) 2 tab Q4H PRN PO MODERATE PAIN (4- 6) Last administered on 06/30/17 20:19; Admin Dose 2 TAB; Start 06/28/17 at 19:00 Atorvastatin Calcium (Lipitor) 80 mg QHS PO Last administered on 07/01/17 20:51 ; Admin Dose 80 MG; Start 06/29/17 at 21:00 Famotidine (Pepcid) 20 mg DAILY PO Last administered on 07/02/17 08:48; Admin Dose 20 MG; Start 06/30/17 at 09:00 Ondansetron HCl (Zofran Inj) 4 mg Q4 PRN IV NAUSEA AND/OR VOMITING Last administered on 07/01/17 00:34; Admin Dose 4 MG; Start 06/30/17 at 13:00 Enoxaparin Sodium (Lovenox) 40 mg DAILY SC Last administered on 07/02/17 08:54 ; Admin Dose 40 MG; Start 07/01/17 at 11:30 Metoprolol Tartrate (Lopressor) 25 mg BID PO Last administered on 07/02/17 10: 37; Admin Dose 25 MG; Start 07/02/17 at 10:30 RENZO FRANCE Jul 02, 2017 12:53
--- NOTE | 2017-07-02 12:56 | PN ---
Date/Time of Note Date/Time of Note DATE: 07/02/17 TIME: 12:53 Assessment/Plan VTE Prophylaxis VTE Prophylaxis Intervention: LMWH Lines/Catheters IV Catheter Type (from Nrs): Saline Lock Urinary Cath still in place: No Assessment/Plan Chief Complaint/Hosp Course 71 yo female w h/o hypertension presneted w gangrenous cholecystitis, s/p cholecystectomy. Now with tachycardia, acute CHF exacerbation Acute CHF exacerbation secondary to ADA/LVOT - Euvolmic now, hold further diuretics - Metoprolol started to lower heart rate given outflow track obstruction Sepsis secondary to acute cholecystitis - status post laparoscopic cholecystectomy with drain placement -IV antibiotics until discharge -Pain controlled History of hypertension -Continue antihypertensives Anemia, likely of chronic disease -Monitor H&H and transfuse as needed History of hypothyroidism -Resume Synthroid Prophylaxis: LMWH Discharge likely tomorrow Problems: Subjective 24 Hr Interval Summary Free Text/Dictation Patient given IV lasix yesterday with good effect after CT showed b/l pleural effusions and no PE Looks much more comfortable today, feels back to normal from breathing perspective Still wtih some mild RUQ pain but improving she says Ambulating wihtout difficulty TTE shows significant LVOT gradient Exam/Review of Systems Vital Signs Vitals Vital Signs Date Time Temp Pulse Resp B/P Pulse Ox O2 Delivery O2 Flow Rate FiO2 07/02/17 09:00 Nasal Cannula 2.0 07/02/17 07:53 98.8 102 20 127/63 98 Intake and Output 07/01/17 07/01/17 07/02/17 14:59 22:59 06:59 Intake Total 450 ml 1100 ml 550 ml Output Total 1000 ml Balance 450 ml 1100 ml -450 ml Exam Still some JVD but less than previous [place] tachy w systolic murmur Lungs clear Abdomen soft, mild tenderness in RUQ, surgical site c/d/i star in place No edema Results Result Diagram: 07/02/17 1038 07/02/17 1038 Results 24 hrs Laboratory Tests Test 07/01/17 13:46 07/02/17 10:38 Troponin I 0.113 White Blood Count 9.2 Red Blood Count 3.21 L Hemoglobin 9.7 L Hematocrit 27.9 L Mean Corpuscular Volume 86.9 Mean Corpuscular Hemoglobin 30.2 Mean Corpuscular Hemoglobin Concent 34.8 Red Cell Distribution Width 14.7 H Platelet Count 294 # Mean Platelet Volume 10.0 Neutrophils % 73.0 Lymphocytes % 15.6 Monocytes % 9.5 Eosinophils % 0.8 Basophils % 0.2 Nucleated Red Blood Cells % 0.0 Neutrophils # (Manual) 6.7 Lymphocytes # 1.4 Monocytes # 0.9 Eosinophils # 0.1 Basophils # 0.0 Nucleated Red Blood Cells # 0.0 Sodium Level 136 Potassium Level 3.4 L Chloride Level 96 L Carbon Dioxide Level 29 Anion Gap 14 Blood Urea Nitrogen 13 Creatinine 0.66 Glucose Level 105 Calcium Level 8.7 Iron Level 26 L Total Iron Binding Capacity 264 Percent Iron Saturation 10 L Ferritin 326.0 H Total Bilirubin 0.9 Direct Bilirubin 0.00 Indirect Bilirubin 0.9 Aspartate Amino Transf (AST/SGOT) 66 H Alanine Aminotransferase (ALT/SGPT) 84 H Alkaline Phosphatase 132 H Total Protein 7.2 # Albumin 3.5 Globulin 3.70 H Albumin/Globulin Ratio 0.94 Medications Medications Current Medications Miscellaneous Information 1 ea NOTE XX ; Start 06/27/17 at 06:30 Dextrose (D50w Syringe) 25 ml Q15M PRN IV DECREASED GLUCOSE; Start 06/27/17 at 06:30 Dextrose 50 ml 50 ml Q15M PRN IV DECREASED GLUCOSE; Start 06/27/17 at 06:30 Ampicillin Sodium/ Sulbactam Sodium (Unasyn 3gm/NS (Pmx)) 100 ml @ 100 mls/hr Q6 IVPB Last administered on 07/02/17 11:30; Admin Dose 100 MLS/HR; Start at 18:00 Acetaminophen (Tylenol Tab) 650 mg Q6H PRN PO PAIN AND OR ELEVATED TEMP Last administered on 07/02/17 02:24; Admin Dose 650 MG; Start 06/27/17 at 20:30 Oxycodone/ Acetaminophen (Percocet (5/ 325)) 1 tab Q4H PRN PO MILD PAIN (1-3); Start 06/28/17 at 19:00 Oxycodone/ Acetaminophen (Percocet (5/ 325)) 2 tab Q4H PRN PO MODERATE PAIN (4- 6) Last administered on 06/30/17 20:19; Admin Dose 2 TAB; Start 06/28/17 at 19:00 Atorvastatin Calcium (Lipitor) 80 mg QHS PO Last administered on 07/01/17 20:51 ; Admin Dose 80 MG; Start 06/29/17 at 21:00 Famotidine (Pepcid) 20 mg DAILY PO Last administered on 07/02/17 08:48; Admin Dose 20 MG; Start 06/30/17 at 09:00 Ondansetron HCl (Zofran Inj) 4 mg Q4 PRN IV NAUSEA AND/OR VOMITING Last administered on 07/01/17 00:34; Admin Dose 4 MG; Start 06/30/17 at 13:00 Enoxaparin Sodium (Lovenox) 40 mg DAILY SC Last administered on 07/02/17 08:54 ; Admin Dose 40 MG; Start 07/01/17 at 11:30 Metoprolol Tartrate (Lopressor) 25 mg BID PO Last administered on 07/02/17 10: 37; Admin Dose 25 MG; Start 07/02/17 at 10:30 KELI AVILEZ MD Jul 02, 2017 12:56
[2017-07-02] MEDS: OXYCODONE/ACETAMINOPHEN (5/325) TAB PO PRN (15:19)
--- NOTE | 2017-07-02 19:16 | RADRPT ---
Vent Rate: 108 bpm RR Interval: 0 msec MD Interval: 138 msec QRS Duration: 90 msec QT Interval: 336 msec QTC Interval: 450 msec P-R-T [place]: 35 - 85 - 44 degrees Sinus tachycardia Otherwise normal ECG Electronically Signed By: Kirill Gaona [id number]
[2017-07-02 19:56] VITALS: BP 150/64; RESP 18
[2017-07-02] MEDS: ATORVASTATIN 80 MG TAB PO SCH (21:08)
[2017-07-03] MEDS: LEVOTHYROXINE 75 MCG TAB PO SCH (06:13)
[2017-07-03] MEDS: AMPICILLIN/SULB 3 GM/NS (PMX) 100 ML IVPB SCH ×3 (06:13→17:48)
--- NOTE | 2017-07-03 07:14 | RADRPT ---
Echocardiogram Report Patient Name: VALENTE TORRES Gender: Female Date: 1945 Study Date: 01-Jul-2017 Grease Man: Ortega [facility] Location: [id number] Ref. Physician: KELI AVILEZ Quality: Adequate Procedures: Transthoracic echocardiogram with complete 2D, M-Mode, and doppler examination. Indications: Congestive Heart Failure. 2D/M Mode Doppler Measurement Value Normal Ranges Measurement Value Normal Ranges LVIDd 2D 3.6 3.5 - 5.6 cm AV Peak Casey 6.0 m/sec LVIDs 2D 2.3 2.1 - 4.1 cm AV Peak PG 143.0 mmHg FS 2D 38.0 % LVOT Peak Casey 4.5 m/sec LVPWd 2D 1.3 0.6 - 1.1 cm LVOT Peak PG 82.0 mmHg IVSd 2D 1.3 0.6 - 1.1 cm MV E Peak Casey 1.8 m/sec IVS/LVPW 2D 1.0 MR Peak PG 333.0 mmHg AoR Diam 2D 2.5 2.0 - 3.7 cm MR Peak Casey 9.1 m/sec LA/Ao 2D 2 0 - 1 TR Peak Casey 5.0 m/sec EDV 2D 47.8 cm3 TR Peak PG 99.0 mmHg ESV 2D 11.4 cm3 RVSP 102.0 mmHg LA Dimen 2D 4.4 2.3 - 4.0 cm Findings Left Ventricle: Hyperdynamic left ventricular systolic function. Normal left ventricular cavity size. Mild concentric left ventricular hypertrophy. Ejection fraction is visually estimated at 80 %. Severe left ventricular outflow tract obstruction. Velocity6.00 m/sec. Max PG143.00 mmHg. Right Ventricle: Normal right ventricular size. Hyperdynamic right ventricular systolic function. Left Atrium: There is mild enlargement of left atrium. Right Atrium: The right atrium is normal in size. Mitral Valve: Mild mitral leaflet calcification. Mild mitral annular calcification. Mild mitral valve regurgitation. Severe systolic anterior motion of mitral valve. Aortic Valve: Aortic sclerosis without stenosis. Trace aortic valve regurgitation. Tricuspid Valve: Normal appearance of the tricuspid valve. Estimated peak PA systolic pressure 39 mmHg. There is moderate to severe tricuspid regurgitation. Pulmonic Valve: Pulmonic valve not well visualized. There is trace pulmonic regurgitation. Pericardium: Normal pericardium with no significant pericardial effusion. Aorta: Normal aortic root. IVC: Normal size and normal respiratory collapse consistent with normal right atrial pressure. Conclusions 1.Hyperdynamic left ventricular systolic function. Normal left ventricular cavity size. Mild concentric left ventricular hypertrophy with prominent septal knuckle. Ejection fraction is visually estimated at 80 %. 2.Severe left ventricular outflow tract obstruction secondary to systolic anterior motion of the anterior mitral valve leaflet with associated significant mitral regurgitation. Velocity up to 6.0 m/sec. Max PG143 mmHg. 3.Moderate to severe mitral valve regurgitation due to systolic anterior motion of mitral valve. 4.Estimated peak PA systolic pressure 39 mmHg based on RA pressure of 3 mmHg. Electronically Signed By: Jimmy Cash 02-Jul-2017 09:49:53 -0700 Patient Name: VALENTE TORRES Study Date: 01-Jul-2017 [id number]
[2017-07-03 08:01] VITALS: BP 143/65; RESP 18
[2017-07-03] MEDS: FAMOTIDINE 20 MG TAB PO SCH (08:29)
[2017-07-03] MEDS: METOPROLOL 25 MG TAB PO SCH (08:30)
[2017-07-03] MEDS: ENOXAPARIN 40 MG/0.4 ML SYG SC SCH (08:34)
[2017-07-03] MEDS ORDERED: METOPROLOL 25 MG TAB PO ONE (09:00)
--- NOTE | 2017-07-03 09:49 | CONS ---
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 Only mild LVH but has a prominent septal knuckle which is not uncommon at her age. She has clear obstruction with ADA and MR. This is treated with beta blockers and avoiding dehydration. Cholecystitis s/p cholecystectomy 06/28/17 HTN -increase to metoprolol 50mg BID -no further diuresis as euvolemic, avoid dehydration -can consider repeating echo on medical therapy later this admission or outpt Problems: Consultation Date/Type/Reason Admit Date/Time Jun 27, 2017 at 00:36 Initial Consult Date 07/02/17 Type of Consultation: Cardiology Referring Provider: KELI AVILEZ MD 24 HR Interval Summary Free Text/Dictation No complaints. No symptoms. No SOB or CP. Exam/Review of Systems Vital Signs Vitals Vital Signs Date Time Temp Pulse Resp B/P Pulse Ox O2 Delivery O2 Flow Rate FiO2 07/03/17 09:00 Nasal Cannula 2.0 07/03/17 08:01 98.0 90 18 143/65 100 Intake and Output 07/02/17 07/02/17 07/03/17 15:00 23:00 07:00 Intake Total 100 ml 1040 ml 400 ml Output Total 800 ml 500 ml Balance 100 ml 240 ml -100 ml Exam Constitutional: alert, oriented Psych: nl mood/affect, no complaints Head: atraumatic, normocephalic Neck: No jvd Respiratory: clear to auscultation, No crackles/rales Cardiovascular: regular rate and rhythm, systolic murmur (3/6 SEMat RUSB, 3/6 HSM at apex ) Gastrointestinal: non-tender, soft, No distended Neurological: nl mental status, nl speech Results Result Diagram: 07/02/17 1038 07/02/17 1038 Results 24 hrs Laboratory Tests Test 07/02/17 10:38 White Blood Count 9.2 Red Blood Count 3.21 L Hemoglobin 9.7 L Hematocrit 27.9 L Mean Corpuscular Volume 86.9 Mean Corpuscular Hemoglobin 30.2 Mean Corpuscular Hemoglobin Concent 34.8 Red Cell Distribution Width 14.7 H Platelet Count 294 # Mean Platelet Volume 10.0 Neutrophils % 73.0 Lymphocytes % 15.6 Monocytes % 9.5 Eosinophils % 0.8 Basophils % 0.2 Nucleated Red Blood Cells % 0.0 Neutrophils # (Manual) 6.7 Lymphocytes # 1.4 Monocytes # 0.9 Eosinophils # 0.1 Basophils # 0.0 Nucleated Red Blood Cells # 0.0 Sodium Level 136 Potassium Level 3.4 L Chloride Level 96 L Carbon Dioxide Level 29 Anion Gap 14 Blood Urea Nitrogen 13 Creatinine 0.66 Glucose Level 105 Calcium Level 8.7 Iron Level 26 L Total Iron Binding Capacity 264 Percent Iron Saturation 10 L Ferritin 326.0 H Total Bilirubin 0.9 Direct Bilirubin 0.00 Indirect Bilirubin 0.9 Aspartate Amino Transf (AST/SGOT) 66 H Alanine Aminotransferase (ALT/SGPT) 84 H Alkaline Phosphatase 132 H Total Protein 7.2 # Albumin 3.5 Globulin 3.70 H Albumin/Globulin Ratio 0.94 Medications Medications Current Medications Miscellaneous Information 1 ea NOTE XX ; Start 06/27/17 at 06:30 Dextrose (D50w Syringe) 25 ml Q15M PRN IV DECREASED GLUCOSE; Start 06/27/17 at 06:30 Dextrose 50 ml 50 ml Q15M PRN IV DECREASED GLUCOSE; Start 06/27/17 at 06:30 Ampicillin Sodium/ Sulbactam Sodium (Unasyn 3gm/NS (Pmx)) 100 ml @ 100 mls/hr Q6 IVPB Last administered on 07/03/17 06:13; Admin Dose 100 MLS/HR; Start at 18:00 Acetaminophen (Tylenol Tab) 650 mg Q6H PRN PO PAIN AND OR ELEVATED TEMP Last administered on 07/02/17 02:24; Admin Dose 650 MG; Start 06/27/17 at 20:30 Oxycodone/ Acetaminophen (Percocet (5/ 325)) 1 tab Q4H PRN PO MILD PAIN (1-3) Last administered on 07/03/17 04:50; Admin Dose 1 TAB; Start 06/28/17 at 19:00 Oxycodone/ Acetaminophen (Percocet (5/ 325)) 2 tab Q4H PRN PO MODERATE PAIN (4- 6) Last administered on 07/02/17 15:19; Admin Dose 2 TAB; Start 06/28/17 at 19:00 Atorvastatin Calcium (Lipitor) 80 mg QHS PO Last administered on 07/02/17 21:08 ; Admin Dose 80 MG; Start 06/29/17 at 21:00 Famotidine (Pepcid) 20 mg DAILY PO Last administered on 07/03/17 08:29; Admin Dose 20 MG; Start 06/30/17 at 09:00 Ondansetron HCl (Zofran Inj) 4 mg Q4 PRN IV NAUSEA AND/OR VOMITING Last administered on 07/01/17 00:34; Admin Dose 4 MG; Start 06/30/17 at 13:00 Enoxaparin Sodium (Lovenox) 40 mg DAILY SC Last administered on 07/03/17 08:34 ; Admin Dose 40 MG; Start 07/01/17 at 11:30 Metoprolol Tartrate (Lopressor) 50 mg BID PO ; Start 07/03/17 at 21:00 RENZO FR[place] Jul 03, 2017 09:48
[2017-07-03] MEDS ORDERED: METO50TA16 PO (11:19)
--- NOTE | 2017-07-03 11:25 | PDOCDIS ---
Discharge Instructions CONDITION Patient Condition: Good HOME CARE INSTRUCTIONS: Diet Instructions: RegularSpecial Diet: low fat, low mike ACTIVITY: Activity Restrictions: Slowly Increase Activity FOLLOW UP/APPOINTMENTS Follow-up Plan Please see your surgeon in clinic in the next 1-2 weeks It is also very improtant for you to make an appointment with [facility] in the near future KELI AVILEZ MD Jul 03, 2017 11:25
[2017-07-03 15:49] VITALS: BP 138/67; RESP 18
[2017-07-03] MEDS ORDERED: ONDA4SOL2 PO (16:11)
--- NOTE | 2017-07-03 18:03 | DS ---
Date/Time of Note Date/Time of Note DATE: 07/03/17 TIME: 18:00 Discharge Summary Admission/Discharge Info Admit Date/Time Jun 27, 2017 at 00:36 Discharge Date/Time Jul 03, 2017 at 17:51 Hx of Present Illness This is a 71-year-old female with a history of hypertension, dyslipidemia, hypothyroidism, gallstones who presents to the emergency department complaining of abdominal pain. Abdominal pain is diffuse but somehow worse in the right upper quadrant area. Patient was admitted under Dr. Domenic Rock to [facility] in February of this year. At that time she was diagnosed with gallstone pancreatitis and acute liver failure. At that time her lipase was 1400, AST 577 and ALT 853. When she presented to the ER at this time, WBC 17.4, hemoglobin 11.8 otherwise CBC and CMP are within acceptable range. LFTs and lipase are within normal limits. Vitals stable with no fever. Gallbladder ultrasound shows cholelithiasis with no evidence of cholecystitis. CBD measures 6.5 mm. . Hospital Course The patient was found to have acute cholecystitis. She underwent laparoscopic cholecystectomy and was given antibiotics. Following surgery, she was found to be tachycardic and short of breath. CT-A was perofrmed which was negative for PE but which showed pleural effusions. She was given diuresis and symptoms improved. 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 She was prescribed metoprolol and further diuresis was held. Patient was stable and comfortable following this. She was discharged with close intstruction to follow up with a fish filleter and her primary care provider. Home Meds Active Scripts Ondansetron HCl (Zofran) 4 Mg/5 Ml Solution, 4 MG PO BEFORE MEALS Y for NAUSEA, #20 Prov:KELI AVILEZ MD 07/03/17 Metoprolol Succinate* (Toprol XL*) 50 Mg Tab.er.24h, 50 MG PO DAILY for 30 Days , #30 TAB Prov:KELI AVILEZ MD 07/03/17 Reported Medications Ferrous Sulfate* (Ferrous Sulfate*) 325 Mg Tabec, 325 MG PO DAILY, TAB 06/26/17 Levothyroxine Sodium* (Levothyroxine Sodium*) 75 Mcg Tablet, 75 MCG PO BEFORE BREAKFAST, #30 TAB 03/28/17 Famotidine* (Famotidine*) 20 Mg Tablet, 20 MG PO DAILY for acid, #30 TAB 03/28/17 Atorvastatin* (Atorvastatin*) 80 Mg Tablet, 80 MG PO QHS, #30 TAB 03/28/17 Discontinued Reported Medications Ibuprofen* (Ibuprofen*) 800 Mg Tab, 800 MG PO TID Y for PRN, TAB 06/26/17 Ondansetron Hcl* (Ondansetron Hcl*) 4 Mg Tablet, 4 MG PO Q8 for NAUSEA, TAB 03/28/17 Hydrochlorothiazide* (Hydrochlorothiazide*) 25 Mg Tab, 25 MG PO DAILY, #30 TAB 03/28/17 Pantoprazole* (Pantoprazole*) 40 Mg Tablet., 40 MG PO AC BREAKFAST, TAB 03/28/17 Primary Care Provider [facility] KELI AVILEZ MD Jul 03, 2017 18:03
[2017-07-03] MEDS ORDERED: METOPROLOL 50 MG TAB PO SCH (21:00)
== END 2017-07-03 17:51 | disposition home or self-care (01) | DRG 854 ==
LOC: E/R 19:49 → MS3 06-27 00:36 → MS1 06-27 12:32
PROVIDERS: ADMIT Internal Medicine; ATTEND Internal Medicine
PROC: 0FT44ZZ Resection of Gallbladder, Percutaneous Endoscopic Approach (ICD-10-PCS; principal; 2017-06-28 17:00)
DX: A41.9 Sepsis, unspecified organism (principal); K80.00 Calculus of gallbladder with acute cholecystitis without obstruction; I10 Essential (primary) hypertension; D63.8 Anemia in other chronic diseases classified elsewhere; E03.9 Hypothyroidism, unspecified; E78.5 Hyperlipidemia, unspecified
CPT/HCPCS: 36415; 71010; 71275; 76705; 78226; 80048; 80053; 81003; 82728; 82962; 83036; 83540; 83690; 83735; 84100; 84443; 84484; 85025; 85610; 85730; 86850; 86900; 86901; 88304; 93005; 93306; 96374; 96375; 96376; 97110; 97116; 97162; 97530; J1940; A9537; J0295; J0360; J1100; J1170; J1650; J1815; J2060; J2250; J2270; J2370; J2405; J2543; J2710; J2765; J3010; J3480; J7030; J7042; J7999; Q9967

== ENCOUNTER 2019-03-27 08:54 | Emergency (ER) | payer OTHER ==
[~2019-03-27] VITALS: Wt 78.3 kg
[~2019-03-27 08:54] MED LIST changes: +ATOR-2 PO; -ATOR80TA75 PO; +FER325 PO; -HYD25 PO; +METO-319 PO; +ONDA4SOL2 PO; -ONDA4TAB95 PO; -PANT40TA4 PO
[2019-03-27 08:57] VITALS: Wt 78.3 kg
[2019-03-27] MEDS ORDERED: ONDANSETRON 4 MG INJ IV STA (09:12)
[2019-03-27] MEDS ORDERED: SOD CHLORIDE 0.9% 1,000 ML IV STA (09:12)
[2019-03-27] MEDS ORDERED: MECLIZINE 12.5 MG TAB PO ONE (09:30)
[2019-03-27] MEDS: LABETALOL HCL 20MG INJ IV ONE ×2 (09:44→09:52)
[2019-03-27] MEDS ORDERED: LORAZEPAM 2 MG INJ IV ONE (10:00)
[2019-03-27] MEDS ORDERED: MECL12.574 PO (10:20)
--- NOTE | 2019-03-27 10:21 | ERD ---
ER Documentation Chief Complaint Chief Complaint dizziness and nausea HPI Patient is a 73-year-old female with hypertension who presents with high blood pressure. She is taking her blood pressure medicines. She saw her primary doct or yesterday who told her the blood pressure was "too high". They change the blood pressure medication to amlodipine and she took the first dose today. Afterwards she felt dizziness, nausea, and palpitations. Upon review of old medical records this is the patient's second visit to the ER since 2017. She does not remember the name of the primary doctor. ROS All systems reviewed and are negative except as per history of present illness. Medications Home Meds Active Scripts Meclizine Hcl* (Antivert*) 12.5 Mg Tab, 25 MG PO Q6H PRN for DIZZINESS, #20 TAB Prov:KALIN STANFORD MD 03/27/19 Reported Medications Levothyroxine Sodium* (Levothyroxine Sodium*) 75 Mcg Tablet, 75 MCG PO BEFORE BREAKFAST, #30 TAB 03/28/17 Famotidine* (Famotidine*) 20 Mg Tablet, 20 MG PO DAILY for acid, #30 TAB 03/28/17 Atorvastatin* (Atorvastatin*) 80 Mg Tablet, 80 MG PO QHS, #30 TAB 03/28/17 Discontinued Reported Medications Ferrous Sulfate* (Ferrous Sulfate*) 325 Mg Tabec, 325 MG PO DAILY, TAB 06/26/17 Discontinued Scripts Ondansetron HCl (Zofran) 4 Mg/5 Ml Solution, 4 MG PO BEFORE MEALS PRN for NAUSEA, #20 Prov:KELI AVILEZ MD 07/03/17 Metoprolol Succinate* (Toprol XL*) 50 Mg Tab.er.24h, 50 MG PO DAILY for 30 Days, #30 TAB Prov:KELI AVILEZ MD 07/03/17 Allergies Allergies: Coded Allergies: No Known Drug Allergies (Verified Allergy, Unknown, 03/27/19) PMhx/Soc History of Surgery: No Anesthesia Reaction: No Hx Neurological Disorder: No Hx Respiratory Disorders: No Hx Cardiac Disorders: Yes (HTN, HIGH CHOL) Hx Psychiatric Problems: No Hx Miscellaneous Medical Probl: Yes (htn, hyperlipidemia, hypothyroidism, gallstones) Hx Alcohol Use: No Hx Substance Use: No Hx Tobacco Use: No Smoking Status: Never smoker FmHx Family History: diabetes Physical Exam Vitals Vital Signs Date Temp Pulse Resp B/P (MAP) Pulse Ox O2 O2 Flow FiO2 Time Delivery Rate 03/27/19 98.8 78 16 145/88 98 Room Air 10:35 (107) 03/27/19 Nasal 2 09:19 Cannula 03/27/19 99.0 90 18 207/91 99 08:57 (129) Physical Exam Const: No acute distress Head: Atraumatic Eyes: Normal Conjunctiva ENT: Normal External Ears, Nose and Mouth. Neck: Full range of motion. No meningismus. Resp: Clear to auscultation bilaterally Cardio: Regular rate and rhythm, no murmurs Abd: Soft, non tender, non distended. Normal bowel sounds Skin: No petechiae or rashes Back: No midline or flank tenderness Ext: No cyanosis, or edema Neur: Awake and alert, cranial nerves II through XII intact, strength is 5 out of 5 in all 4 extremities, no slurred speech Psych: Normal Mood and Affect Result Diagram: 03/27/1992103/27/19921 Results 24 hrs Laboratory Tests Test 03/27/19 09:22 03/27/19 09:50 White Blood Count 10.7 10^3/ul Red Blood Count 4.17 10^6/ul Hemoglobin 12.2 g/dl Hematocrit 36.6 % Mean Corpuscular Volume 87.8 fl Mean Corpuscular Hemoglobin 29.3 pg Mean Corpuscular Hemoglobin Concent 33.3 g/dl Red Cell Distribution Width 13.7 % Platelet Count 262 10^3/UL Mean Platelet Volume 10.6 fl Immature Granulocytes % 0.700 % Neutrophils % 74.8 % Lymphocytes % 20.5 % Monocytes % 3.3 % Eosinophils % 0.5 % Basophils % 0.2 % Nucleated Red Blood Cells % 0.0 /100WBC Immature Granulocytes # 0.080 10^3/ul Neutrophils # 8.0 10^3/ul Lymphocytes # 2.2 10^3/ul Monocytes # 0.4 10^3/ul Eosinophils # 0.1 10^3/ul Basophils # 0.0 10^3/ul Nucleated Red Blood Cells # 0.0 10^3/ul Prothrombin Time 12.5 Sec Prothrombin Time Ratio 1.0 INR International Normalized Ratio 0.92 Activated Partial Thromboplast Time 31.1 Sec Sodium Level 139 mmol/L Potassium Level 3.8 mmol/L Chloride Level 107 mmol/L Carbon Dioxide Level 22 mmol/L Anion Gap 10 Blood Urea Nitrogen 10 mg/dl Creatinine 0.67 mg/dl Est Glomerular Filtrat Rate mL/min mL/min Glucose Level 118 mg/dl Hemoglobin A1c 5.8 % Calcium Level 9.6 mg/dl Troponin I < 0.012 ng/ml Triglycerides Level 106 mg/dl Cholesterol Level 158 mg/dl LDL Cholesterol, Calculated 84 mg/dl HDL Cholesterol 53 mg/dl Cholesterol/HDL Ratio 2.9 RATIO Urine Color STRAW Urine Clarity CLEAR Urine pH 8.0 Urine Specific Donaldson 1.010 Urine Ketones NEGATIVE mg/dL Urine Nitrite NEGATIVE mg/dL Urine Bilirubin NEGATIVE mg/dL Urine Urobilinogen NEGATIVE mg/dL Urine Leukocyte Esterase NEGATIVE Shad/ul Urine Hemoglobin NEGATIVE mg/dL Urine Glucose NEGATIVE mg/dL Urine Total Protein NEGATIVE mg/dl Urine Opiates Screen Negative Urine Barbiturates Negative Urine Amphetamines Screen Negative Urine Benzodiazepines Screen Negative Urine Cocaine Screen Negative Urine Cannabinoids Negative Current Medications Medications Dose Sig/Alejandra Start Time Status Last (Trade) Ordered Route PRN Stop Time Admin Dose Reason Admin Sodium 1,000 ml @ Q1H STAT 03/27/19 DC 03/27/19 Chloride 1,000 mls/hr IV 09:12 03/27/19 09:43 10:11 Ondansetron 4 mg ONCE STAT 03/27/19 DC 03/27/19 HCl (Zofran IV 09:12 03/27/19 09:43 Inj) 09:13 Meclizine 25 mg ONCE ONCE 03/27/19 DC 03/27/19 HCl PO 09:30 03/27/19 09:43 (Antivert) 09:31 Labetalol 20 mg ONCE ONCE 03/27/19 DC HCl IV 09:30 03/27/19 (Labetalol) 09:31 Lorazepam 0.5 mg ONCE ONCE 03/27/19 DC (Ativan) IV 10:00 03/27/19 10:01 Procedures/MDM EKG read by me: Rate/Rhythm: Regular rate and rhythm at a rate of 84 Intervals: Normal Impression: No evidence of ischemia or arrhythmia CT brain read by radiology. Chest x-ray read by radiology. Patient is a 73-year-old female presents with high blood pressure and dizziness. The patient had a full work-up including laboratory studies, CT scan of the brain, EKG, and chest x-ray. Laboratory studies are basically normal. Imaging studies are basically normal. At this point I doubt intracranial mass, hemorrhage, or stroke. Doubt serious electrolyte abnormality. I believe symptoms may be related to hypertension or the new medication. Therefore I told the patient to stop her amlodipine and follow-up with her primary doctor within 24 to 48 hours to discuss further blood pressure management. The patient was given copies of laboratory studies and imaging tests and can return for any worsening symptoms. Departure Diagnosis: Primary Impression: HTN (hypertension) Hypertension type: essential hypertension Qualified Codes: I10 - Essential (primary) hypertension Additional Impression: Dizziness Condition: Fair Patient Instructions: High Blood Pressure (Hypertension), Dizziness, Unk Cause Additional Instructions: Llame al doctor MAANA y chitra mary ANYI PARA DENTRO DE 1-2 LOPEZ.Dgale a la secretaria que nosotros le instruimos hacer esta anyi.Avise o llame si dimas condicin se empeora antes de la anyi. Regresa aqui si peor o no mejor. KALIN STANFORD MD Mar 27, 2019 10:21
[2019-03-27 10:35] VITALS: BP 145/88; PULSE 78; RESP 16
== END 2019-03-27 10:40 | disposition home or self-care (01) ==
LOC: E/R 08:54
DX: I10 Essential (primary) hypertension (principal); E03.9 Hypothyroidism, unspecified
CPT/HCPCS: 36415; 70450; 71045; 80048; 80061; 80307; 81003; 83036; 84484; 85025; 85610; 85730; 93005; 96361; 96374; J2405; J7030; Z7502; Z7610